=== PATIENT | female | born 1935 | race Caucasian/White ===

== ENCOUNTER 2016-10-06 14:45 | Outpatient (CLI) | payer MEDICARE, MEDICAID | END 2016-10-06 14:46 | disposition home or self-care (01) | DX: D64.9 Anemia, unspecified (principal) ==

== ENCOUNTER 2016-11-22 07:45 | Outpatient (CLI) | payer MEDICARE, MEDICAID | END 2016-11-22 07:46 | disposition home or self-care (01) | DX: I10 Essential (primary) hypertension (principal); D64.9 Anemia, unspecified; E78.5 Hyperlipidemia, unspecified ==

== ENCOUNTER 2017-10-16 08:00 | Outpatient (CLI) | payer MEDICARE, MEDICAID ==
[2017-10-16 23:03] LABS: BASOPHILS % (AUTO) 0.3 %; EOSINOPHILS % (AUTO) 0.4 %; LYMPHOCYTES % (AUTO) 16.1 %; MEAN CORPUSCULAR HEMOGLOBIN 30.4 pg (27.0-31.0); MEAN CORPUSCULAR HGB CONC 32.7 g/dL (32.0-36.0); MEAN PLATELET VOLUME 8.7 fL (7.9-10.8); MONOCYTES # (AUTO) 0.3 10^3/uL (0.0-1.0); MONOCYTES % (AUTO) 4.7 %; NEUTROPHILS # (AUTO) 4.7 10^3/uL (1.5-6.6); NEUTROPHILS % (AUTO) 78.5 %; PLT - PLATELET COUNT 222 10^3/uL (130-450); RED BLOOD COUNT 3.94 10^6/uL (4.20-5.40); RED CELL DISTRIBUTION WIDTH 14.2 % (12.0-15.0)
[2017-10-16 23:18] LABS: ALBUMIN 3.2 g/dL (3.2-5.5); ALBUMIN/GLOBULIN RATIO 1.1 (1.0-2.2); BILIRUBIN,TOTAL 0.7 mg/dL (0.2-1.0); CALCIUM 7.9 mg/dL (8.5-10.3); CREATININE 1.6 mg/dL (0.4-1.0); TOTAL PROTEIN 6.1 g/dL (6.7-8.2)
== END 2017-10-16 08:01 | disposition home or self-care (01) ==
LOC: LAB.R 08:00
DX: D50.9 Iron deficiency anemia, unspecified (principal); F20.9 Schizophrenia, unspecified; E87.6 Hypokalemia
CPT/HCPCS: 80053; 82728; 85025

== ENCOUNTER 2017-10-23 08:00 | Outpatient (CLI) | payer MEDICARE, MEDICAID ==
[2017-10-23 12:33] LABS: CALCIUM 9.1 mg/dL (8.5-10.3); CREATININE 1.2 mg/dL (0.4-1.0)
== END 2017-10-23 08:01 | disposition home or self-care (01) ==
LOC: LAB.R 08:00
PROVIDERS: ATTEND Family Medicine
DX: E87.6 Hypokalemia (principal); N18.3 Chronic kidney disease, stage 3 (moderate)
CPT/HCPCS: 80048

== ENCOUNTER 2018-07-07 05:16 | Outpatient (CLI) | payer MEDICARE, MEDICAID | END 2018-07-07 05:17 | disposition critical access hospital (66) | LOC: EMS 05:16 | PROVIDERS: ATTEND Surgery | DX: M25.571 Pain in right ankle and joints of right foot (principal); W01.0XXA Fall on same level from slipping, tripping and stumbling without subsequent striking against object, initial encounter; Y92.121 Bathroom in nursing home as the place of occurrence of the external cause | CPT/HCPCS: A0425; A0429 ==

== ENCOUNTER 2018-07-07 05:36 | Emergency (ER) | payer MEDICARE, MEDICAID ==
--- NOTE | 2018-07-07 05:53 | ED Physician Documentation ---
PD HPI Fall - Stated complaint Stated Complaint: GLF - Chief complaint Chief Complaint: Trauma Ext - History obtained from History obtained from: Patient, EMS - History of Present Illness Mechanism of injury: Slipped Fall distance: Standing position Where injury occurred: Home Timing - onset: Today Injury(ies) location: Right Lower Extremity Pain level max: 7 Pain level now: 7 Quality of pain: Pain Associated symptoms: No: LOC, AMS, Amnesia, Seizures, Ear drainage, Nasal drainage, Neck pain, Weakness, Paresthesias, Dyspnea, Nausea / vomiting, Hematemesis, Abdominal distension Worsens with: Movement, Palpation Contributing factors: No: Anticoagulated, Intoxicated Similar symptoms before: Has not had sx before Recently seen: Not recently seen - Additional information Additional information: 83-year-old female with a history of Parkinson's disease was on her way to the bathroom when she slipped in some fluid on the ground and fell onto her right side. She has a fracture dislocation deformity of the right ankle. Medics were able to palpate the right thigh and knee and were able to get some pain to deep palpation but she is able to move the joint and a good range of motion. The patient indicates that she was not otherwise ill prior to this fall. Review of Systems Constitutional: denies: Fever, Chills Eyes: denies: Decreased vision Ears: denies: Ear pain Nose: denies: Congestion Throat: denies: Dental pain / toothache Cardiac: denies: Chest pain / pressure, Palpitations Respiratory: denies: Dyspnea, Cough GI: denies: Abdominal Pain, Nausea, Vomiting : denies: Dysuria, Frequency Skin: denies: Rash Musculoskeletal: reports: Extremity pain, Joint pain, Joint swelling. denies: Neck pain, Back pain Neurologic: denies: Generalized weakness, Focal weakness, Numbness PD PAST MEDICAL HISTORY - Present Medications Home Medications: Ambulatory Orders Medication Instructions Recorded Confirmed Acetaminophen 650 mg PO TID 07/07/18 07/07/18 Hydralazine HCl 1 tab PO BID 07/07/18 07/07/18 Loperamide HCl [Anti-Diarrheal] 2 mg PO DAILY PRN 07/07/18 07/07/18 Multivitamin W/Minerals [Theragran 1 tab PO DAILY 07/07/18 07/07/18 M] OLANZapine [Zyprexa] 1 tab PO BID 07/07/18 07/07/18 Potassium Chloride 20 meq PO DAILY 07/07/18 07/07/18 Ranitidine HCl [Acid Cardiology Tech] 1 tab PO DAILY 07/07/18 07/07/18 Triple Flex 1 tab PO BID 07/07/18 - Allergies Allergies/Adverse Reactions: Allergies Allergy/AdvReac Type Severity Reaction Status Date / Time No Known Drug Allergies Allergy Verified 07/07/18 05:56 PD ED PE NORMAL - Vitals Vital signs reviewed: Yes (hypertensive ) - General General: No acute distress, Well developed/nourished - HEENT HEENT: Atraumatic, PERRL, EOMI - Neck Neck: Supple, no meningeal sign, No bony TTP - Cardiac Cardiac: RRR, No murmur - Respiratory Respiratory: No respiratory distress, Clear bilaterally - Abdomen Abdomen: Soft, Non tender - Back Back: No CVA TTP, No spinal TTP - Derm Derm: Normal color, Warm and dry, No rash - Extremities Extremities: Other (There is fracture dislocation deformity to the right ankle. There is swelling to the knee without tenderness and theres is no specific tenderness to the hip. I am able to move the hip joint through flexion extension. distal n/v is intact. ) - Neuro Neuro: dye blender 2-12 intact, No motor deficit, No sensory deficit, Normal speech Eye Opening: Spontaneous Motor: Obeys Commands Verbal: Oriented GCS Score: 15 - Psych Psych: Normal mood, Normal affect Results - Vitals Vitals: Vital Signs - 24 hr 07/07/18 07/07/18 05:39 06:32 Temperature 36.5 C Heart Rate 91 89 Respiratory 18 19 Rate Blood Pressure 173/88 H 155/97 H O2 Saturation 95 94 Oxygen O2 Source Room air - Labs Labs: Laboratory Tests 07/07/18 07/07/18 07/07/18 06:10 06:10 06:10 WBC 6.5 RBC 3.91 L Hgb 12.1 Hct 37.1 MCV 94.7 MCH 31.0 MCHC 32.7 RDW 14.4 Plt Count 238 MPV 7.6 L Neut # (Auto) 3.6 Lymph # (Auto) 2.3 Mellette # (Auto) 0.3 Eos # (Auto) 0.2 Baso # (Auto) 0.0 Absolute Nucleated RBC 0.01 Nucleated RBC % 0.1 Sodium 138 Potassium 3.3 L Chloride 105 Carbon Dioxide 25 Anion Gap 8.0 BUN 26 H Creatinine 1.4 H Estimated GFR (MDRD) 36 L Glucose 118 H Calcium 9.0 Total Bilirubin 0.7 AST 19 ALT 16 Alkaline Phosphatase 68 Troponin I < 0.04 Total Protein 7.2 Albumin 3.7 Globulin 3.5 Albumin/Globulin Ratio 1.1 Lipase 58 H Urine Color Urine Clarity Urine pH Ur Specific Nitro Urine Protein Urine Glucose (UA) Urine Ketones Urine Occult Blood Urine Nitrite Urine Bilirubin Urine Urobilinogen Ur Leukocyte Esterase Ur Microscopic Review Urine Culture Comments 07/07/18 06:10 WBC RBC Hgb Hct MCV MCH MCHC RDW Plt Count MPV Neut # (Auto) Lymph # (Auto) Mellette # (Auto) Eos # (Auto) Baso # (Auto) Absolute Nucleated RBC Nucleated RBC % Sodium Potassium Chloride Carbon Dioxide Anion Gap BUN Creatinine Estimated GFR (MDRD) Glucose Calcium Total Bilirubin AST ALT Alkaline Phosphatase Troponin I Total Protein Albumin Globulin Albumin/Globulin Ratio Lipase Urine Color YELLOW Urine Clarity CLEAR Urine pH 6.0 Ur Specific Nitro 1.020 Urine Protein NEGATIVE Urine Glucose (UA) NEGATIVE Urine Ketones NEGATIVE Urine Occult Blood NEGATIVE Urine Nitrite NEGATIVE Urine Bilirubin NEGATIVE Urine Urobilinogen 0.2 (NORMAL) Ur Leukocyte Esterase NEGATIVE Ur Microscopic Review NOT INDICATED Urine Culture Comments NOT INDICATED - Rads (name of study) right hip Radiology: Prelim report reviewed (Impression: Osteopenia . No fracture on x- ray imaging.), EMP read indepedently, See rad report right ankle Radiology: Prelim report reviewed (Impression: 1. Acute Figueroa B fracture of the distal fibula and transverse fracture of the medial malleolus. There is lateral displacement and angulation of the distal fragments. 2. Lateral subluxation of the talus relative to the tibia measuring approximately 2 cm.), EMP read indepedently, See rad report post reduction Radiology: Prelim report reviewed (Impression: Interval closed reduction of the previously seen trimalleolar ankle fracture and tibial talar subluxation. There is minimal residual offset of fracture fragments.), EMP read indepedently, See rad report Procedures - Reduction Body part reduced: Right, Ankle Fracture or dislocation: Fracture Anesthesia: Dilaudid Reduction aftercare: NV intact, Xray confirms reduction, Alignment improved, Splint applied, Patient tolerated well PD MEDICAL DECISION MAKING - ED course Complexity details: reviewed old records, reviewed results, re-evaluated patient, considered differential, d/w patient, d/w reimbursement consultant (Ruma: attempt reduction with placement of splint and follow up in clinic. ) ED course: 83-year-old female with a slip on water and a fall has a fracture of her right ankle. She has tolerated this well and reduction is achieved with the use of intravenous dilaudid and placement of a fiberglass splint posterior and stirrup. Departure - Departure Disposition: 01 Home, Self Care Clinical Impression: Ankle fracture, bimalleolar, closed Qualifiers: Encounter type: initial encounter Laterality: right Qualified Code(s): S82.841A - Displaced bimalleolar fracture of right lower leg, initial encounter for closed fracture Condition: Stable Instructions: ED Fx Lower Ext Follow-Up: Janes Priest DO [Primary Care Provider] - Cong Hendrix MD [Provider Admit Priv/Credential] - Comments: Your ankle is broken and you will need to follow up with the orthopedic doctors this week. In the mean time you will not be able to bear weight on this leg.
[2018-07-07] MEDS ORDERED: IOPAMIDOL-300 100 ML VIAL ONE (06:09)
[2018-07-07] MEDS: KETOROLAC 60 MG/2 ML VIAL IVP STA (06:12)
[2018-07-07 06:22] LABS: BILIRUBIN,URINE NEGATIVE (NEGATIVE); GLUCOSE, URINE (UA) NEGATIVE (NEGATIVE); KETONES,URINE (UA) NEGATIVE (NEGATIVE); LEUKOCYTE ESTERASE, URINE NEGATIVE (NEGATIVE); NITRITE,URINE NEGATIVE (NEGATIVE); OCCULT BLOOD,URINE NEGATIVE (NEGATIVE); PROTEIN,URINE NEGATIVE (NEGATIVE); UROBILINOGEN,URINE 0.2 (NORMAL) E.U./dL (NORMAL)
[2018-07-07 06:23] LABS: BASOPHILS % (AUTO) 0.4 %; EOSINOPHILS # (AUTO) 0.2 10^3/uL (0.0-0.7); EOSINOPHILS % (AUTO) 2.8 %; HGB - HEMOGLOBIN 12.1 g/dL (12.0-16.0); LYMPHOCYTES # (AUTO) 2.3 10^3/uL (1.5-3.5); LYMPHOCYTES % (AUTO) 35.4 %; MEAN CORPUSCULAR HGB CONC 32.7 g/dL (32.0-36.0); MEAN CORPUSCULAR VOLUME 94.7 fL (81.0-99.0); MEAN PLATELET VOLUME 7.6 fL (7.9-10.8); MONOCYTES # (AUTO) 0.3 10^3/uL (0.0-1.0); MONOCYTES % (AUTO) 5.3 %; NEUTROPHILS # (AUTO) 3.6 10^3/uL (1.5-6.6); NEUTROPHILS % (AUTO) 56.1 %; PLT - PLATELET COUNT 238 10^3/uL (130-450); RED BLOOD COUNT 3.91 10^6/uL (4.20-5.40); RED CELL DISTRIBUTION WIDTH 14.4 % (12.0-15.0); WHITE BLOOD COUNT 6.5 x10^3/uL (4.8-10.8)
[2018-07-07 06:42] LABS: ALBUMIN 3.7 g/dL (3.2-5.5); ALBUMIN/GLOBULIN RATIO 1.1 (1.0-2.2); BILIRUBIN,TOTAL 0.7 mg/dL (0.2-1.0); CREATININE 1.4 mg/dL (0.4-1.0); TOTAL PROTEIN 7.2 g/dL (6.7-8.2)
[2018-07-07 06:44] LABS: CLARITY,URINE CLEAR (CLEAR)
[2018-07-07] MEDS: ONDANSETRON 4 MG/2 ML VIAL IVP STA (07:36)
[2018-07-07] MEDS: HYDROmorphone 1 MG/ML CARPUJECT IVP STA (07:36)
--- NOTE | 2018-07-07 07:46 | XRAY Report ---
Reason: fall fracture dislocation deformity. Procedure Date: 07/07/2018 Accession Number: [id number] / [id number] Procedure: XR - Ankle 3 View RT CPT Code: FULL RESULT: EXAM: RIGHT ANKLE RADIOGRAPHY EXAM DATE: 07/07/2018 07:09 AM. CLINICAL HISTORY: Fall. Fracture dislocation deformity. COMPARISON: None. TECHNIQUE: 4 views. FINDINGS: Bones: Diffusely demineralized. There is an acute transverse fracture of the medial malleolus with lateral displacement of the distal fragment measuring approximately 1.7 cm. There is an acute oblique fracture of the distal fibula at the level of the tibial plafond (Figueroa B fracture). Lateral displacement of the distal fragment measures approximately 1.5 cm. There is lateral angulation of the distal fibular fragment. Joints: The ankle mortise is disrupted. There is lateral subluxation of the talus relative to the tibia measuring approximately 2 cm. Soft Tissues: There is diffuse soft tissue swelling around the ankle. Moderate vascular calcifications are present. IMPRESSION: 1. Acute Figueroa B fracture of the distal fibula and transverse fracture of the medial malleolus. There is lateral displacement and angulation of the distal fragments. 2. Lateral subluxation of the talus relative to the tibia measuring approximately 2 cm. RADIA
--- NOTE | 2018-07-07 07:48 | XRAY Report ---
Reason: fall hip pain. Procedure Date: 07/07/2018 Accession Number: [id number] / [id number] Procedure: XR - Hip w/Pelvis 2-3V RT CPT Code: FULL RESULT: EXAM: PELVIS AND RIGHT HIP RADIOGRAPHY EXAM DATE: 07/07/2018 07:09 AM HISTORY: Fall. Hip pain. COMPARISONS: None. TECHNIQUE: 1 view of the pelvis and one view of the right hip. FINDINGS: Bones: Osteopenia is present. No fractures or bone lesion. Joints: There are mild degenerative changes of the bilateral hip joints. Soft Tissues: Normal. No soft tissue swelling. IMPRESSION: Osteopenia. No fracture on x-ray imaging. Note: Osteopenia can limit detection of trabecular fracture. If the patient cannot ambulate, recommend MRI hip to exclude occult fracture. RADIA
--- NOTE | 2018-07-07 08:24 | XRAY Report ---
Reason: post reduction Procedure Date: 07/07/2018 Accession Number: [id number] / [id number] Procedure: XR - Ankle 2 View RT CPT Code: FULL RESULT: EXAM: RIGHT ANKLE RADIOGRAPHY EXAM DATE: 07/07/2018 08:06 AM. CLINICAL HISTORY: Post reduction. COMPARISON: ANKLE 3 VIEW RT 07/07/2018 6:43 AM. TECHNIQUE: 2 views. FINDINGS: Bones: A splint is present, which partly obscures underlying detail. Bones are diffusely demineralized. As noted on the prior exam, there is an acute transverse fracture of the medial malleolus and acute oblique fracture of the distal fibula at the level of the tibial plafond. There is also an acute posterior malleolar fracture of the distal tibia. Alignment is improved compared to the prior exam, with minimal residual offset. Joints: There has been interval reduction of the previously seen tibiotalar subluxation. Ankle mortise alignment is now near-anatomic. Soft Tissues: There is diffuse soft tissue swelling around the ankle. IMPRESSION: Interval closed reduction of the previously seen trimalleolar ankle fracture and tibiotalar subluxation. There is minimal residual offset of fracture fragments. RADIA
[2018-07-07 08:45] VITALS: BP 108/72
== END 2018-07-07 09:19 | disposition home or self-care (01) ==
LOC: EDUNIT# → ED 05:36
DX: S82.841A Displaced bimalleolar fracture of right lower leg, initial encounter for closed fracture (principal); S93.01XA Subluxation of right ankle joint, initial encounter; W01.0XXA Fall on same level from slipping, tripping and stumbling without subsequent striking against object, initial encounter; Y92.002 Bathroom of unspecified non-institutional (private) residence as the place of occurrence of the external cause; G20 Parkinson's disease
CPT/HCPCS: 27810; 36415; 73502; 73600; 73610; 80053; 81003; 83690; 84484; 85025; 96374; 96375; 99283; 99284; J1170; 81001; 87086

== ENCOUNTER 2018-10-23 08:00 | Outpatient (CLI) | payer MEDICARE, MEDICAID ==
[2018-10-23 16:03] LABS: BASOPHILS # (AUTO) 0.1 10^3/uL (0.0-0.1); BASOPHILS % (AUTO) 0.7 %; EOSINOPHILS # (AUTO) 0.2 10^3/uL (0.0-0.7); EOSINOPHILS % (AUTO) 2.3 %; HGB - HEMOGLOBIN 12.1 g/dL (12.0-16.0); LYMPHOCYTES % (AUTO) 27.5 %; MEAN CORPUSCULAR HEMOGLOBIN 30.5 pg (27.0-31.0); MEAN CORPUSCULAR HGB CONC 32.1 g/dL (32.0-36.0); MONOCYTES # (AUTO) 0.5 10^3/uL (0.0-1.0); MONOCYTES % (AUTO) 6.3 %; NEUTROPHILS # (AUTO) 4.7 10^3/uL (1.5-6.6); NEUTROPHILS % (AUTO) 63.2 %; PLT - PLATELET COUNT 283 10^3/uL (130-450); RED BLOOD COUNT 3.96 10^6/uL (4.20-5.40); RED CELL DISTRIBUTION WIDTH 14.7 % (12.0-15.0); WHITE BLOOD COUNT 7.4 x10^3/uL (4.8-10.8)
[2018-10-23 16:13] LABS: CALCIUM 9.2 mg/dL (8.5-10.3); CREATININE 1.1 mg/dL (0.4-1.0)
== END 2018-10-23 23:59 | disposition home or self-care (01) ==
LOC: LAB.R 08:00
PROVIDERS: ATTEND Family Medicine
DX: E78.6 Lipoprotein deficiency (principal); D64.9 Anemia, unspecified
CPT/HCPCS: 80048; 85025

== ENCOUNTER 2019-06-24 10:05 | Outpatient (CLI) | payer MEDICARE, MEDICAID | END 2019-06-24 23:59 | disposition home or self-care (01) | LOC: LAB.R 10:05 | DX: N39.0 Urinary tract infection, site not specified (principal) | CPT/HCPCS: 81001; 81003; 87086 ==

== ENCOUNTER 2019-06-25 18:16 | Outpatient (CLI) | payer MEDICARE, MEDICAID ==
[2019-06-25 23:12] LABS: BILIRUBIN,URINE NEGATIVE (NEGATIVE); GLUCOSE, URINE (UA) NEGATIVE (NEGATIVE); KETONES,URINE (UA) NEGATIVE (NEGATIVE); LEUKOCYTE ESTERASE, URINE NEGATIVE (NEGATIVE); NITRITE,URINE NEGATIVE (NEGATIVE); OCCULT BLOOD,URINE NEGATIVE (NEGATIVE); PROTEIN,URINE NEGATIVE (NEGATIVE); UROBILINOGEN,URINE 0.2 (NORMAL) E.U./dL (NORMAL)
[2019-06-25 23:15] LABS: CLARITY,URINE CLEAR (CLEAR)
== END 2019-06-25 23:59 | disposition home or self-care (01) ==
LOC: LAB.R 18:16
DX: N39.0 Urinary tract infection, site not specified (principal)
CPT/HCPCS: 81001; 81003; 87086

== ENCOUNTER 2019-07-15 19:00 | Outpatient (CLI) | payer MEDICARE, MEDICAID ==
[2019-07-15 23:16] LABS: BILIRUBIN,URINE NEGATIVE (NEGATIVE); GLUCOSE, URINE (UA) NEGATIVE (NEGATIVE); KETONES,URINE (UA) NEGATIVE (NEGATIVE); LEUKOCYTE ESTERASE, URINE NEGATIVE (NEGATIVE); NITRITE,URINE NEGATIVE (NEGATIVE); OCCULT BLOOD,URINE NEGATIVE (NEGATIVE); PROTEIN,URINE NEGATIVE (NEGATIVE); UROBILINOGEN,URINE 0.2 (NORMAL) E.U./dL (NORMAL)
[2019-07-15 23:18] LABS: CLARITY,URINE CLEAR (CLEAR)
== END 2019-07-15 23:59 | disposition home or self-care (01) ==
LOC: LAB.R 19:00
DX: N39.0 Urinary tract infection, site not specified (principal)
CPT/HCPCS: 81001; 81003; 87086

== ENCOUNTER 2019-10-15 08:00 | Outpatient (CLI) | payer MEDICARE, MEDICAID ==
[2019-10-15 17:11] LABS: ALBUMIN 4.1 g/dL (3.2-5.5); ALBUMIN/GLOBULIN RATIO 1.2 (1.0-2.2); BILIRUBIN,DIRECT 0.1 mg/dL (0.1-0.5); BILIRUBIN,TOTAL 0.5 mg/dL (0.2-1.0); CALCIUM 9.6 mg/dL (8.5-10.3); CREATININE 1.4 mg/dL (0.4-1.0); TOTAL PROTEIN 7.5 g/dL (6.7-8.2)
[2019-10-15 17:13] LABS: HB2 TOTAL 13.5 g/dL; HEMOGLOBIN A1C 0.46 g/dL; HEMOGLOBIN A1C % 5.3 % (4.6-6.2)
== END 2019-10-15 23:59 | disposition home or self-care (01) ==
LOC: LAB.R 08:00
DX: N28.9 Disorder of kidney and ureter, unspecified (principal); R73.09 Other abnormal glucose
CPT/HCPCS: 80053; 80076; 83036

== ENCOUNTER 2019-10-16 08:00 | Outpatient (CLI) | payer MEDICARE, MEDICAID ==
[2019-10-16 07:28] LABS: ALBUMIN 3.7 g/dL (3.2-5.5); BILIRUBIN,DIRECT 0.1 mg/dL (0.1-0.5); BILIRUBIN,TOTAL 0.5 mg/dL (0.2-1.0); CREATININE 1.2 mg/dL (0.4-1.0); TOTAL PROTEIN 6.7 g/dL (6.7-8.2)
[2019-10-16 07:54] LABS: HB2 TOTAL 12.5 g/dL; HEMOGLOBIN A1C 0.42 g/dL; HEMOGLOBIN A1C % 5.2 % (4.6-6.2)
== END 2019-10-16 23:59 | disposition home or self-care (01) ==
LOC: LAB.R 08:00
DX: D64.9 Anemia, unspecified (principal); G24.01 Drug induced subacute dyskinesia
CPT/HCPCS: 80051; 80076; 82565; 83036

== ENCOUNTER 2019-12-13 08:00 | Outpatient (CLI) | payer MEDICARE, MEDICAID ==
[2019-12-13 16:03] LABS: BASOPHILS % (AUTO) 0.7 %; EOSINOPHILS # (AUTO) 0.1 10^3/uL (0.0-0.7); EOSINOPHILS % (AUTO) 1.6 %; HGB - HEMOGLOBIN 12.4 g/dL (12.0-16.0); LYMPHOCYTES # (AUTO) 1.7 10^3/uL (1.5-3.5); LYMPHOCYTES % (AUTO) 30.2 %; MEAN CORPUSCULAR HEMOGLOBIN 31.3 pg (27.0-31.0); MEAN CORPUSCULAR HGB CONC 31.4 g/dL (32.0-36.0); MEAN CORPUSCULAR VOLUME 99.7 fL (81.0-99.0); MEAN PLATELET VOLUME 10.1 fL (7.9-10.8); MONOCYTES # (AUTO) 0.5 10^3/uL (0.0-1.0); MONOCYTES % (AUTO) 9.4 %; NEUTROPHILS # (AUTO) 3.3 10^3/uL (1.5-6.6); NEUTROPHILS % (AUTO) 57.8 %; PLT - PLATELET COUNT 246 10^3/uL (130-450); RED BLOOD COUNT 3.96 10^6/uL (4.20-5.40); WHITE BLOOD COUNT 5.7 x10^3/uL (4.8-10.8)
[2019-12-13 16:10] LABS: CALCIUM 9.2 mg/dL (8.5-10.3); CREATININE 1.2 mg/dL (0.4-1.0)
== END 2019-12-13 23:59 | disposition home or self-care (01) ==
LOC: LAB.R 08:00
PROVIDERS: ATTEND Family Medicine
DX: U07.1 COVID-19 (principal); I10 Essential (primary) hypertension
CPT/HCPCS: 80048; 85025

== ENCOUNTER → 2020-07-12 | Outpatient (CLI) | payer MEDICARE, MEDICAID ==
[2020-07-12 15:26] LABS: BASOPHILS % (AUTO) 0.6 %; EOSINOPHILS # (AUTO) 0.2 10^3/uL (0.0-0.7); EOSINOPHILS % (AUTO) 3.6 %; HGB - HEMOGLOBIN 12.3 g/dL (12.0-16.0); LYMPHOCYTES # (AUTO) 1.9 10^3/uL (1.5-3.5); LYMPHOCYTES % (AUTO) 29.7 %; MEAN CORPUSCULAR HEMOGLOBIN 30.8 pg (27.0-31.0); MEAN CORPUSCULAR HGB CONC 30.8 g/dL (32.0-36.0); MONOCYTES # (AUTO) 0.4 10^3/uL (0.0-1.0); MONOCYTES % (AUTO) 6.2 %; NEUTROPHILS # (AUTO) 3.8 10^3/uL (1.5-6.6); NEUTROPHILS % (AUTO) 59.6 %; PLT - PLATELET COUNT 249 10^3/uL (130-450); RED CELL DISTRIBUTION WIDTH 13.6 % (12.0-15.0); WHITE BLOOD COUNT 6.3 x10^3/uL (4.8-10.8)
[2020-07-12 15:48] LABS: ALBUMIN 3.6 g/dL (3.2-5.5); ALBUMIN/GLOBULIN RATIO 1.2 (1.0-2.2); ALKALINE PHOSPHATASE 56 IU/L (42-121); ALT ALANINE AMINOTRANSFERASE 10 IU/L (10-60); AST ASPARTATE AMINOTRANSFERASE 12 IU/L (10-42); BILIRUBIN,TOTAL 0.6 mg/dL (0.2-1.0); BUN - BLOOD UREA NITROGEN 22 mg/dL (6-20); CALCIUM 9.5 mg/dL (8.5-10.3); CARBON DIOXIDE - CO2 23 mmol/L (21-32); CHLORIDE 107 mmol/L (101-111); CHOL/HDL RATIO 6.8 (<4.4); CHOLESTEROL 291 mg/dL; CREATININE 1.2 mg/dL (0.4-1.0); GLUCOSE 80 mg/dL (70-100); HDL CHOLESTEROL 43 mg/dL; LDL CHOLESTEROL,CALCULATED 207 mg/dL; LDL/HDL RATIO 4.8 (<4.4); SODIUM 143 mmol/L (135-145); TOTAL PROTEIN 6.6 g/dL (6.7-8.2); VLDL CHOLESTEROL 41 mg/dL
[2020-07-12 20:14] LABS: HEMOGLOBIN A1c% 5.4 % (4.27-6.07)
== END ==
LOC: LAB.R 08:00
PROVIDERS: ATTEND Family Medicine
DX: I10 Essential (primary) hypertension (principal); E78.5 Hyperlipidemia, unspecified; D64.9 Anemia, unspecified; R73.01 Impaired fasting glucose; N28.9 Disorder of kidney and ureter, unspecified; R63.4 Abnormal weight loss; G20 Parkinson's disease; Z78.9 Other specified health status; T88.7XXS Unspecified adverse effect of drug or medicament, sequela
CPT/HCPCS: 80053; 80061; 83036; 83721; 84146; 85025

== ENCOUNTER 2020-09-13 08:00 | Outpatient (CLI) | payer MEDICARE, MEDICAID ==
[2020-09-13 08:27] LABS: BASOPHILS % (AUTO) 0.4 %; EOSINOPHILS # (AUTO) 0.2 10^3/uL (0.0-0.7); EOSINOPHILS % (AUTO) 4.3 %; HGB - HEMOGLOBIN 12.1 g/dL (12.0-16.0); LYMPHOCYTES # (AUTO) 1.4 10^3/uL (1.5-3.5); LYMPHOCYTES % (AUTO) 25.3 %; MEAN CORPUSCULAR HEMOGLOBIN 31.3 pg (27.0-31.0); MEAN CORPUSCULAR HGB CONC 31.3 g/dL (32.0-36.0); MEAN CORPUSCULAR VOLUME 100.3 fL (81.0-99.0); MEAN PLATELET VOLUME 9.7 fL (7.9-10.8); MONOCYTES # (AUTO) 0.5 10^3/uL (0.0-1.0); MONOCYTES % (AUTO) 8.9 %; NEUTROPHILS # (AUTO) 3.4 10^3/uL (1.5-6.6); NEUTROPHILS % (AUTO) 60.7 %; PLT - PLATELET COUNT 230 10^3/uL (130-450); RED BLOOD COUNT 3.86 10^6/uL (4.20-5.40); RED CELL DISTRIBUTION WIDTH 13.2 % (12.0-15.0); WHITE BLOOD COUNT 5.5 x10^3/uL (4.8-10.8)
[2020-09-13 08:42] LABS: CHOL/HDL RATIO 4.1 (<4.4); CHOLESTEROL 203 mg/dL; HDL CHOLESTEROL 49 mg/dL; LDL CHOLESTEROL,CALCULATED 117 mg/dL; LDL/HDL RATIO 2.4 (<4.4); VLDL CHOLESTEROL 37 mg/dL
== END 2020-09-13 23:59 | disposition home or self-care (01) ==
LOC: LAB.R 08:00
PROVIDERS: ATTEND Family Medicine
DX: E78.5 Hyperlipidemia, unspecified (principal); D64.9 Anemia, unspecified
CPT/HCPCS: 80061; 83721; 85025

== ENCOUNTER 2020-09-15 11:30 | Outpatient (CLI) | payer MEDICARE, MEDICAID ==
[2020-09-15 12:14] LABS: CALCIUM 9.2 mg/dL (8.5-10.3); CREATININE 1.3 mg/dL (0.4-1.0)
== END 2020-09-15 23:59 | disposition home or self-care (01) ==
LOC: LAB.R 11:30
DX: D64.9 Anemia, unspecified (principal); E78.5 Hyperlipidemia, unspecified; N28.9 Disorder of kidney and ureter, unspecified; M17.12 Unilateral primary osteoarthritis, left knee
CPT/HCPCS: 36415; 80048; 85651

== ENCOUNTER 2020-09-16 13:35 | Outpatient (CLI) | payer MEDICARE, MEDICAID ==
--- NOTE | 2020-09-16 16:49 | XRAY Report ---
PROCEDURE: Knee 2 View RT INDICATIONS: Rt Knee pain and swelling TECHNIQUE: 2 views of the right knee(s) were acquired. COMPARISON: Right knee radiographs 02/02/2015 FINDINGS: Bones: No acute fractures or dislocations. No suspicious bony lesions. There is generalized osteope ann. There is moderate narrowing of the lateral femorotibial compartment joint space appears more pro minent on lateral view. There is mild narrowing of the medial compartment joint space. Soft tissues: Chondrocalcinosis is noted. There is a small joint effusion. IMPRESSION: 1. Degenerative osteoarthrosis is at least moderate in the lateral femorotibial compartment, mildly progressed when compared to the prior radiographs from 02/02/2015. 2. Chondrocalcinosis. 3. Small joint effusion. Reviewed by: Johnathon Moreno MD on 09/16/2020 4:47 PM PST Approved by: Johnathon Moreno MD on 09/16/2020 4:47 PM PST Station ID: [id number]
== END 2020-09-16 13:36 | disposition home or self-care (01) ==
LOC: DI 13:35
PROVIDERS: ATTEND Nurse Practitioner
DX: M17.11 Unilateral primary osteoarthritis, right knee (principal); M11.261 Other chondrocalcinosis, right knee

== ENCOUNTER 2021-01-10 08:00 | Outpatient (CLI) | payer MEDICARE, MEDICAID ==
[2021-01-10 19:57] LABS: BASOPHILS % (AUTO) 0.8 %; EOSINOPHILS # (AUTO) 0.1 10^3/uL (0.0-0.7); EOSINOPHILS % (AUTO) 2.5 %; HCT - HEMATOCRIT 43.2 % (37.0-47.0); HGB - HEMOGLOBIN 14.4 g/dL (12.0-16.0); LYMPHOCYTES # (AUTO) 1.7 10^3/uL (1.5-3.5); LYMPHOCYTES % (AUTO) 32.4 %; MEAN CORPUSCULAR HGB CONC 33.3 g/dL (32.0-36.0); MEAN CORPUSCULAR VOLUME 101.9 fL (81.0-99.0); MEAN PLATELET VOLUME 10.5 fL (7.9-10.8); MONOCYTES # (AUTO) 0.4 10^3/uL (0.0-1.0); MONOCYTES % (AUTO) 7.2 %; NEUTROPHILS % (AUTO) 56.7 %; PLT - PLATELET COUNT 268 10^3/uL (130-450); RED BLOOD COUNT 4.24 10^6/uL (4.20-5.40); RED CELL DISTRIBUTION WIDTH 13.2 % (12.0-15.0); WHITE BLOOD COUNT 5.3 x10^3/uL (4.8-10.8)
[2021-01-10 20:19] LABS: ALBUMIN 4.3 g/dL (3.2-5.5); ALBUMIN/GLOBULIN RATIO 1.2 (1.0-2.2); ALKALINE PHOSPHATASE 62 IU/L (42-121); ALT ALANINE AMINOTRANSFERASE 14 IU/L (10-60); AST ASPARTATE AMINOTRANSFERASE 16 IU/L (10-42); BILIRUBIN,TOTAL 0.6 mg/dL (0.2-1.0); BUN - BLOOD UREA NITROGEN 30 mg/dL (6-20); CALCIUM 9.6 mg/dL (8.5-10.3); CARBON DIOXIDE - CO2 25 mmol/L (21-32); CHLORIDE 107 mmol/L (101-111); CHOL/HDL RATIO 4.2 (<4.4); CHOLESTEROL 208 mg/dL; CREATININE 1.3 mg/dL (0.4-1.0); GFR - MDRD 39 (>89); GLUCOSE 108 mg/dL (70-100); HDL CHOLESTEROL 50 mg/dL; LDL CHOLESTEROL,CALCULATED 103 mg/dL; LDL/HDL RATIO 2.1 (<4.4); POTASSIUM 4.1 mmol/L (3.5-5.0); SODIUM 141 mmol/L (135-145); TOTAL PROTEIN 7.8 g/dL (6.7-8.2); TRIGLYCERIDES 273 mg/dL; VLDL CHOLESTEROL 55 mg/dL
== END 2021-01-10 23:59 | disposition home or self-care (01) ==
LOC: LAB.R 08:00
DX: I12.9 Hypertensive chronic kidney disease with stage 1 through stage 4 chronic kidney disease, or unspecified chronic kidney disease (principal); N18.30 Chronic kidney disease, stage 3 unspecified; N28.9 Disorder of kidney and ureter, unspecified; E78.5 Hyperlipidemia, unspecified; D64.9 Anemia, unspecified; D75.89 Other specified diseases of blood and blood-forming organs; F34.0 Cyclothymic disorder
CPT/HCPCS: 80053; 80061; 83721; 84146; 85025

== ENCOUNTER 2021-02-11 08:00 | Outpatient (CLI) | payer MEDICARE, MEDICAID ==
[2021-02-11 11:57] LABS: BASOPHILS % (AUTO) 0.4 %; EOSINOPHILS # (AUTO) 0.4 10^3/uL (0.0-0.7); EOSINOPHILS % (AUTO) 7.1 %; HCT - HEMATOCRIT 39.7 % (37.0-47.0); HGB - HEMOGLOBIN 12.5 g/dL (12.0-16.0); LYMPHOCYTES # (AUTO) 1.6 10^3/uL (1.5-3.5); LYMPHOCYTES % (AUTO) 30.9 %; MEAN CORPUSCULAR HEMOGLOBIN 32.1 pg (27.0-31.0); MEAN CORPUSCULAR HGB CONC 31.5 g/dL (32.0-36.0); MEAN CORPUSCULAR VOLUME 101.8 fL (81.0-99.0); MEAN PLATELET VOLUME 10.2 fL (7.9-10.8); MONOCYTES # (AUTO) 0.3 10^3/uL (0.0-1.0); MONOCYTES % (AUTO) 6.5 %; NEUTROPHILS # (AUTO) 2.8 10^3/uL (1.5-6.6); NEUTROPHILS % (AUTO) 54.9 %; PLT - PLATELET COUNT 200 10^3/uL (130-450); RED CELL DISTRIBUTION WIDTH 12.9 % (12.0-15.0); WHITE BLOOD COUNT 5.1 x10^3/uL (4.8-10.8)
[2021-02-11 12:17] LABS: ALBUMIN 3.7 g/dL (3.2-5.5); ALBUMIN/GLOBULIN RATIO 1.3 (1.0-2.2); ALKALINE PHOSPHATASE 46 IU/L (42-121); ALT ALANINE AMINOTRANSFERASE 12 IU/L (10-60); AST ASPARTATE AMINOTRANSFERASE 15 IU/L (10-42); BILIRUBIN,TOTAL 0.6 mg/dL (0.2-1.0); BUN - BLOOD UREA NITROGEN 24 mg/dL (6-20); CALCIUM 9.2 mg/dL (8.5-10.3); CARBON DIOXIDE - CO2 25 mmol/L (21-32); CHLORIDE 107 mmol/L (101-111); CHOL/HDL RATIO 3.3 (<4.4); CHOLESTEROL 149 mg/dL; CREATININE 1.2 mg/dL (0.4-1.0); GFR - MDRD 42 (>89); GLUCOSE 86 mg/dL (70-100); HDL CHOLESTEROL 45 mg/dL; LDL CHOLESTEROL,CALCULATED 77 mg/dL; LDL/HDL RATIO 1.7 (<4.4); POTASSIUM 3.8 mmol/L (3.5-5.0); SODIUM 140 mmol/L (135-145); TOTAL PROTEIN 6.6 g/dL (6.7-8.2); TRIGLYCERIDES 136 mg/dL; VLDL CHOLESTEROL 27 mg/dL
[2021-02-11 13:37] LABS: ESTIMATED AVERAGE GLUCOSE 108 mg/dL (70-100); HEMOGLOBIN A1c% 5.4 % (4.27-6.07)
== END 2021-02-11 23:59 | disposition home or self-care (01) ==
LOC: LAB.R 08:00
DX: N28.9 Disorder of kidney and ureter, unspecified (principal); E78.5 Hyperlipidemia, unspecified; D64.9 Anemia, unspecified; D37.01 Neoplasm of uncertain behavior of lip; R63.4 Abnormal weight loss; R73.09 Other abnormal glucose
CPT/HCPCS: 80053; 80061; 83036; 83721; 84146; 85025

== ENCOUNTER 2021-08-13 08:00 | Outpatient (CLI) | payer MEDICARE, MEDICAID ==
[2021-08-13 19:31] LABS: BASOPHILS % (AUTO) 0.6 %; EOSINOPHILS # (AUTO) 0.2 10^3/uL (0.0-0.7); EOSINOPHILS % (AUTO) 2.5 %; HCT - HEMATOCRIT 40.5 % (37.0-47.0); HGB - HEMOGLOBIN 12.8 g/dL (12.0-16.0); LYMPHOCYTES # (AUTO) 2.1 10^3/uL (1.5-3.5); LYMPHOCYTES % (AUTO) 29.5 %; MEAN CORPUSCULAR HEMOGLOBIN 32.2 pg (27.0-31.0); MEAN CORPUSCULAR HGB CONC 31.6 g/dL (32.0-36.0); MEAN CORPUSCULAR VOLUME 101.8 fL (81.0-99.0); MEAN PLATELET VOLUME 10.8 fL (7.9-10.8); MONOCYTES # (AUTO) 0.6 10^3/uL (0.0-1.0); MONOCYTES % (AUTO) 7.9 %; NEUTROPHILS # (AUTO) 4.3 10^3/uL (1.5-6.6); NEUTROPHILS % (AUTO) 59.2 %; PLT - PLATELET COUNT 230 10^3/uL (130-450); RED BLOOD COUNT 3.98 10^6/uL (4.20-5.40); RED CELL DISTRIBUTION WIDTH 12.9 % (12.0-15.0); WHITE BLOOD COUNT 7.2 x10^3/uL (4.8-10.8)
[2021-08-13 19:41] LABS: BUN - BLOOD UREA NITROGEN 36 mg/dL (6-20); CALCIUM 9.1 mg/dL (8.5-10.3); CARBON DIOXIDE - CO2 24 mmol/L (21-32); CHLORIDE 104 mmol/L (101-111); CHOL/HDL RATIO 3.2 (<4.4); CHOLESTEROL 185 mg/dL; CREATININE 1.3 mg/dL (0.4-1.0); GFR - MDRD 39 (>89); GLUCOSE 113 mg/dL (70-100); HDL CHOLESTEROL 58 mg/dL; LDL CHOLESTEROL,CALCULATED 79 mg/dL; LDL/HDL RATIO 1.4 (<4.4); POTASSIUM 4.3 mmol/L (3.5-5.0); SODIUM 139 mmol/L (135-145); TRIGLYCERIDES 240 mg/dL; VLDL CHOLESTEROL 48 mg/dL
[2021-08-13 20:21] LABS: ESTIMATED AVERAGE GLUCOSE 111 mg/dL (70-100); HEMOGLOBIN A1c% 5.5 % (4.27-6.07)
== END 2021-08-13 23:59 ==
LOC: LAB 08:00
DX: I12.9 Hypertensive chronic kidney disease with stage 1 through stage 4 chronic kidney disease, or unspecified chronic kidney disease (principal); N18.30 Chronic kidney disease, stage 3 unspecified; F30.4 Manic episode in full remission; E78.5 Hyperlipidemia, unspecified; E08.9 Diabetes mellitus due to underlying condition without complications; D64.9 Anemia, unspecified
CPT/HCPCS: 36415; 80048; 80061; 83036; 83721; 84146; 85025

== ENCOUNTER 2021-09-14 08:00 | Outpatient (CLI) | payer MEDICARE, MEDICAID ==
[2021-09-14 19:47] LABS: BILIRUBIN,URINE NEGATIVE (NEGATIVE); GLUCOSE, URINE (UA) NEGATIVE (NEGATIVE); KETONES,URINE (UA) 15 mg/dL (NEGATIVE); LEUKOCYTE ESTERASE, URINE NEGATIVE (NEGATIVE); NITRITE,URINE NEGATIVE (NEGATIVE); OCCULT BLOOD,URINE NEGATIVE (NEGATIVE); PROTEIN,URINE NEGATIVE (NEGATIVE); UROBILINOGEN,URINE 0.2 (NORMAL) E.U./dL (NORMAL)
[2021-09-14 19:50] LABS: CLARITY,URINE CLEAR (CLEAR)
== END 2021-09-14 23:59 ==
LOC: LAB 08:00
DX: N39.0 Urinary tract infection, site not specified (principal)
CPT/HCPCS: 81001; 81003; 87086

== ENCOUNTER 2021-09-15 10:18 | Outpatient (CLI) | payer MEDICARE, MEDICAID ==
[2021-09-15 10:29] LABS: BASOPHILS % (AUTO) 0.3 %; EOSINOPHILS # (AUTO) 0.1 10^3/uL (0.0-0.7); EOSINOPHILS % (AUTO) 1.2 %; HCT - HEMATOCRIT 39.5 % (37.0-47.0); HGB - HEMOGLOBIN 12.4 g/dL (12.0-16.0); LYMPHOCYTES # (AUTO) 1.3 10^3/uL (1.5-3.5); LYMPHOCYTES % (AUTO) 13.7 %; MEAN CORPUSCULAR HEMOGLOBIN 31.2 pg (27.0-31.0); MEAN CORPUSCULAR HGB CONC 31.4 g/dL (32.0-36.0); MEAN CORPUSCULAR VOLUME 99.5 fL (81.0-99.0); MEAN PLATELET VOLUME 10.6 fL (7.9-10.8); MONOCYTES # (AUTO) 0.6 10^3/uL (0.0-1.0); MONOCYTES % (AUTO) 6.4 %; NEUTROPHILS # (AUTO) 7.3 10^3/uL (1.5-6.6); NEUTROPHILS % (AUTO) 78.2 %; PLT - PLATELET COUNT 220 10^3/uL (130-450); RED BLOOD COUNT 3.97 10^6/uL (4.20-5.40); RED CELL DISTRIBUTION WIDTH 13.2 % (12.0-15.0); WHITE BLOOD COUNT 9.3 x10^3/uL (4.8-10.8)
[2021-09-15 10:41] LABS: ALBUMIN 3.7 g/dL (3.2-5.5); BILIRUBIN,TOTAL 0.9 mg/dL (0.2-1.0); CALCIUM 9.2 mg/dL (8.5-10.3); CREATININE 1.1 mg/dL (0.4-1.0); POTASSIUM 3.5 mmol/L (3.5-5.0); TOTAL PROTEIN 7.3 g/dL (6.7-8.2)
== END 2021-09-15 10:19 | disposition home or self-care (01) ==
LOC: LAB.R 10:18
DX: E78.5 Hyperlipidemia, unspecified (principal); D64.9 Anemia, unspecified; D75.89 Other specified diseases of blood and blood-forming organs
CPT/HCPCS: 80053; 85025

== ENCOUNTER 2021-09-20 15:25 | Outpatient (CLI) | payer MEDICARE, MEDICAID ==
--- NOTE | 2021-09-20 16:15 | XRAY Report ---
PROCEDURE: Chest 2 View X-Ray INDICATIONS: COUGH TECHNIQUE: 2 view(s) of the chest. COMPARISON: Prior comparison studies not available for review. FINDINGS: Surgical changes and devices: None. Lungs and pleura: No substantial pleural effusions. No pneumothorax. Chronic appearing diffuse inter stitial prominence with hyperaeration and flattening of the hemidiaphragms. No focal airspace disease . Mediastinum: Mediastinal contours are normal. Heart size is normal. Atherosclerotic calcifications are noted in the thoracic aorta. Bones and chest wall: No suspicious bony abnormalities. Soft tissues appear unremarkable. Diffuse o steopenia. No acute compression fracture seen. IMPRESSION: Findings compatible with sequela of chronic obstructive pulmonary physiology. No focal a irspace disease. No acute cardiopulmonary abnormalities. Reviewed by: Dario Nichols MD on 09/20/2021 4:13 PM PST Approved by: Dario Nichols MD on 09/20/2021 4:13 PM PST Station ID: [id number]
== END 2021-09-20 15:26 | disposition home or self-care (01) ==
LOC: DI 15:25
PROVIDERS: ATTEND Hospitalist
DX: R05.9 Cough, unspecified (principal); R09.89 Other specified symptoms and signs involving the circulatory and respiratory systems

== ENCOUNTER 2021-09-29 08:00 | Outpatient (CLI) | payer MEDICARE, MEDICAID ==
[2021-09-29 17:19] LABS: BASOPHILS % (AUTO) 0.4 %; EOSINOPHILS # (AUTO) 0.2 10^3/uL (0.0-0.7); EOSINOPHILS % (AUTO) 2.3 %; HCT - HEMATOCRIT 37.2 % (37.0-47.0); HGB - HEMOGLOBIN 11.8 g/dL (12.0-16.0); LYMPHOCYTES # (AUTO) 1.9 10^3/uL (1.5-3.5); LYMPHOCYTES % (AUTO) 25.8 %; MEAN CORPUSCULAR HEMOGLOBIN 31.9 pg (27.0-31.0); MEAN CORPUSCULAR HGB CONC 31.7 g/dL (32.0-36.0); MEAN CORPUSCULAR VOLUME 100.5 fL (81.0-99.0); MEAN PLATELET VOLUME 10.3 fL (7.9-10.8); MONOCYTES # (AUTO) 0.5 10^3/uL (0.0-1.0); MONOCYTES % (AUTO) 6.9 %; NEUTROPHILS # (AUTO) 4.7 10^3/uL (1.5-6.6); NEUTROPHILS % (AUTO) 64.5 %; PLT - PLATELET COUNT 288 10^3/uL (130-450); RED CELL DISTRIBUTION WIDTH 13.2 % (12.0-15.0); WHITE BLOOD COUNT 7.2 x10^3/uL (4.8-10.8)
[2021-09-29 17:54] LABS: CREATININE 1.2 mg/dL (0.4-1.0)
== END 2021-09-29 23:59 ==
LOC: LAB.R 08:00
DX: E78.5 Hyperlipidemia, unspecified (principal); D64.9 Anemia, unspecified; N18.30 Chronic kidney disease, stage 3 unspecified; D37.01 Neoplasm of uncertain behavior of lip
CPT/HCPCS: 80048; 82728; 85025; 85379; 86140

== ENCOUNTER 2021-11-29 10:48 | Outpatient (CLI) | payer MEDICARE, MEDICAID ==
[2021-11-29 11:05] LABS: CREATININE 1.3 mg/dL (0.4-1.0); POTASSIUM 3.4 mmol/L (3.5-5.0)
== END 2021-11-29 10:49 | disposition home or self-care (01) ==
LOC: LAB.R 10:48
PROVIDERS: ATTEND Hospitalist
DX: E78.5 Hyperlipidemia, unspecified (principal); I10 Essential (primary) hypertension
CPT/HCPCS: 80048

== ENCOUNTER 2022-01-27 08:00 | Outpatient (CLI) | payer MEDICARE, MEDICAID ==
[2022-01-27 16:59] LABS: BASOPHILS # (AUTO) 0.1 10^3/uL (0.0-0.1); BASOPHILS % (AUTO) 0.7 %; EOSINOPHILS # (AUTO) 0.2 10^3/uL (0.0-0.7); EOSINOPHILS % (AUTO) 3.3 %; HCT - HEMATOCRIT 39.3 % (37.0-47.0); LYMPHOCYTES # (AUTO) 1.7 10^3/uL (1.5-3.5); LYMPHOCYTES % (AUTO) 23.1 %; MEAN CORPUSCULAR HEMOGLOBIN 29.9 pg (27.0-31.0); MEAN CORPUSCULAR HGB CONC 30.5 g/dL (32.0-36.0); MEAN CORPUSCULAR VOLUME 97.8 fL (81.0-99.0); MEAN PLATELET VOLUME 10.6 fL (7.9-10.8); MONOCYTES # (AUTO) 0.5 10^3/uL (0.0-1.0); MONOCYTES % (AUTO) 6.4 %; NEUTROPHILS # (AUTO) 4.8 10^3/uL (1.5-6.6); NEUTROPHILS % (AUTO) 66.2 %; PLT - PLATELET COUNT 258 10^3/uL (130-450); RED BLOOD COUNT 4.02 10^6/uL (4.20-5.40); RED CELL DISTRIBUTION WIDTH 13.4 % (12.0-15.0); WHITE BLOOD COUNT 7.3 x10^3/uL (4.8-10.8)
[2022-01-27 17:32] LABS: ALBUMIN 3.8 g/dL (3.2-5.5); BILIRUBIN,TOTAL 0.3 mg/dL (0.2-1.0); CALCIUM 9.4 mg/dL (8.5-10.3); CREATININE 1.3 mg/dL (0.4-1.0); POTASSIUM 4.1 mmol/L (3.5-5.0); TOTAL PROTEIN 7.7 g/dL (6.7-8.2)
== END 2022-01-27 23:59 | disposition home or self-care (01) ==
LOC: LAB.R 08:00
PROVIDERS: ATTEND Hospitalist
DX: E78.2 Mixed hyperlipidemia (principal); D64.9 Anemia, unspecified
CPT/HCPCS: 80053; 82728; 83540; 84466; 85025

== ENCOUNTER 2022-02-10 08:00 | Outpatient (CLI) | payer MEDICARE, MEDICAID ==
[2022-02-10 17:18] LABS: BASOPHILS % (AUTO) 0.7 %; EOSINOPHILS # (AUTO) 0.2 10^3/uL (0.0-0.7); EOSINOPHILS % (AUTO) 3.5 %; HCT - HEMATOCRIT 41.7 % (37.0-47.0); HGB - HEMOGLOBIN 12.7 g/dL (12.0-16.0); LYMPHOCYTES # (AUTO) 1.1 10^3/uL (1.5-3.5); LYMPHOCYTES % (AUTO) 24.3 %; MEAN CORPUSCULAR HEMOGLOBIN 30.4 pg (27.0-31.0); MEAN CORPUSCULAR HGB CONC 30.5 g/dL (32.0-36.0); MEAN CORPUSCULAR VOLUME 99.8 fL (81.0-99.0); MONOCYTES # (AUTO) 0.4 10^3/uL (0.0-1.0); MONOCYTES % (AUTO) 9.6 %; NEUTROPHILS # (AUTO) 2.8 10^3/uL (1.5-6.6); NEUTROPHILS % (AUTO) 61.5 %; PLT - PLATELET COUNT 244 10^3/uL (130-450); RED BLOOD COUNT 4.18 10^6/uL (4.20-5.40); RED CELL DISTRIBUTION WIDTH 14.6 % (12.0-15.0); WHITE BLOOD COUNT 4.6 x10^3/uL (4.8-10.8)
[2022-02-10 17:48] LABS: ALBUMIN 3.4 g/dL (3.2-5.5); ALKALINE PHOSPHATASE 60 IU/L (42-121); ALT ALANINE AMINOTRANSFERASE 19 IU/L (10-60); AST ASPARTATE AMINOTRANSFERASE 22 IU/L (10-42); BILIRUBIN,TOTAL 0.4 mg/dL (0.2-1.0); BUN - BLOOD UREA NITROGEN 34 mg/dL (6-20); CALCIUM 9.2 mg/dL (8.5-10.3); CARBON DIOXIDE - CO2 28 mmol/L (21-32); CHLORIDE 105 mmol/L (101-111); CHOL/HDL RATIO 3.1 (<4.4); CHOLESTEROL 147 mg/dL; CREATININE 1.1 mg/dL (0.4-1.0); GFR - MDRD 47 (>89); GLUCOSE 92 mg/dL (70-100); HDL CHOLESTEROL 47 mg/dL; LDL CHOLESTEROL,CALCULATED 78 mg/dL; LDL/HDL RATIO 1.7 (<4.4); POTASSIUM 4.3 mmol/L (3.5-5.0); SODIUM 142 mmol/L (135-145); TOTAL PROTEIN 6.9 g/dL (6.7-8.2); TRIGLYCERIDES 112 mg/dL; VLDL CHOLESTEROL 22 mg/dL
[2022-02-10 21:59] LABS: ESTIMATED AVERAGE GLUCOSE 114 mg/dL (70-100); HEMOGLOBIN A1c% 5.6 % (4.27-6.07)
== END 2022-02-10 23:59 | disposition home or self-care (01) ==
LOC: LAB.R 08:00
PROVIDERS: ATTEND Hospitalist
DX: D64.9 Anemia, unspecified (principal); E78.2 Mixed hyperlipidemia; N28.9 Disorder of kidney and ureter, unspecified
CPT/HCPCS: 80053; 80061; 83036; 83721; 84146; 85025

== ENCOUNTER 2022-03-23 08:00 | Outpatient (CLI) | payer MEDICARE, MEDICAID ==
[2022-03-23 16:37] LABS: BASOPHILS % (AUTO) 0.4 %; EOSINOPHILS # (AUTO) 0.1 10^3/uL (0.0-0.7); EOSINOPHILS % (AUTO) 1.3 %; HCT - HEMATOCRIT 37.8 % (37.0-47.0); HGB - HEMOGLOBIN 11.8 g/dL (12.0-16.0); LYMPHOCYTES # (AUTO) 1.3 10^3/uL (1.5-3.5); LYMPHOCYTES % (AUTO) 18.4 %; MEAN CORPUSCULAR HEMOGLOBIN 31.1 pg (27.0-31.0); MEAN CORPUSCULAR HGB CONC 31.2 g/dL (32.0-36.0); MEAN CORPUSCULAR VOLUME 99.7 fL (81.0-99.0); MEAN PLATELET VOLUME 10.5 fL (7.9-10.8); MONOCYTES # (AUTO) 0.6 10^3/uL (0.0-1.0); MONOCYTES % (AUTO) 8.4 %; NEUTROPHILS # (AUTO) 5.1 10^3/uL (1.5-6.6); NEUTROPHILS % (AUTO) 71.2 %; PLT - PLATELET COUNT 231 10^3/uL (130-450); RED BLOOD COUNT 3.79 10^6/uL (4.20-5.40); RED CELL DISTRIBUTION WIDTH 15.3 % (12.0-15.0); WHITE BLOOD COUNT 7.2 x10^3/uL (4.8-10.8)
[2022-03-23 16:53] LABS: ALBUMIN 3.7 g/dL (3.2-5.5); BILIRUBIN,TOTAL 0.4 mg/dL (0.2-1.0); CALCIUM 9.2 mg/dL (8.5-10.3); CREATININE 1.1 mg/dL (0.4-1.0); POTASSIUM 4.1 mmol/L (3.5-5.0); TOTAL PROTEIN 7.3 g/dL (6.7-8.2)
== END 2022-03-23 23:59 | disposition home or self-care (01) ==
LOC: LAB.R 08:00
PROVIDERS: ATTEND Hospitalist
DX: E78.2 Mixed hyperlipidemia (principal); D64.9 Anemia, unspecified
CPT/HCPCS: 80053; 85025

== ENCOUNTER 2022-03-24 08:00 | Outpatient (CLI) | payer MEDICARE, MEDICAID ==
[2022-03-24 19:09] LABS: BILIRUBIN,URINE NEGATIVE (NEGATIVE); GLUCOSE, URINE (UA) NEGATIVE (NEGATIVE); KETONES,URINE (UA) NEGATIVE (NEGATIVE); LEUKOCYTE ESTERASE, URINE NEGATIVE (NEGATIVE); NITRITE,URINE NEGATIVE (NEGATIVE); OCCULT BLOOD,URINE NEGATIVE (NEGATIVE); PROTEIN,URINE NEGATIVE (NEGATIVE); UROBILINOGEN,URINE 0.2 (NORMAL) E.U./dL (NORMAL)
[2022-03-24 19:13] LABS: CLARITY,URINE HAZY (CLEAR)
[2022-03-24 19:38] LABS: RBC,URINE 0-5 /HPF (0-5); SQUAMOUS EPITHELIAL CELL,UR MANY Squamous (<= Few); WBC,URINE 0-3 /HPF (0-5)
[2022-03-24 19:39] LABS: BACTERIA,URINE Moderate /HPF (None Seen)
== END 2022-03-24 23:59 | disposition home or self-care (01) ==
LOC: LAB.R 08:00
PROVIDERS: ATTEND Hospitalist
DX: N18.30 Chronic kidney disease, stage 3 unspecified (principal); N32.81 Overactive bladder; N28.9 Disorder of kidney and ureter, unspecified
CPT/HCPCS: 81001; 81003; 87086

== ENCOUNTER 2022-05-20 03:14 | Outpatient (CLI) | payer MEDICARE, MEDICAID | END 2022-05-20 03:15 | disposition critical access hospital (66) | LOC: EMS 03:14 | DX: S50.312A Abrasion of left elbow, initial encounter (principal); S61.412A Laceration without foreign body of left hand, initial encounter; W01.0XXA Fall on same level from slipping, tripping and stumbling without subsequent striking against object, initial encounter; Z91.81 History of falling; Y92.129 Unspecified place in nursing home as the place of occurrence of the external cause | CPT/HCPCS: A0425; A0429 ==

== ENCOUNTER 2022-05-20 03:23 | Emergency (ER) | payer MEDICARE, MEDICAID ==
[2022-05-20] MEDS ORDERED: TETANUS/DIPHTHERIA/PERTUSSIS 0.5 ML SYRINGE IM ONE (03:37)
--- NOTE | 2022-05-20 04:15 | ED Physician Documentation ---
History of Present Illness - Stated complaint Stated Complaint: GLF/ELBOW INJ - Chief complaint Chief Complaint: General - History obtained from History obtained from: Patient, EMS - Additonal information Additional information: Patient is an 87-year-old female who lives at [facility] presenting for evaluation after a fall. Patient was getting up from bed to go to the bathroom and using the aid of her walker when she fell. She is unclear what made her fall but denies that she felt dizzy lightheaded, had chest pain or difficulty breathing prior to falling. She did not hit her head or lose consciousness. She immediately called out to staff for help and they came to her aid. She has injury to the left elbow and reports tenderness to the left hip.She is unsure of her last tetanus. She does not take a blood thinner.She denies recently being ill. Review of Systems Constitutional: denies: Fever Nose: denies: Congestion Cardiac: denies: Chest pain / pressure Respiratory: denies: Dyspnea GI: denies: Abdominal Pain, Vomiting : denies: Dysuria Skin: reports: Laceration (s) Musculoskeletal: denies: Back pain Neurologic: denies: Headache PD PAST MEDICAL HISTORY - Past Medical History Cardiovascular: High cholesterol Neuro: Parkinson's GI: GERD Psych: Depression, Schizophrenia Musculoskeletal: Osteoarthritis Derm: Other - Present Medications Home Medications: Ambulatory Orders Medication Instructions Recorded Confirmed Hydralazine HCl 25 mg PO BID 07/07/18 03/15/22 Multivitamin W/Minerals [Theragran 1 tab PO DAILY 07/07/18 03/15/22 M] Potassium Chloride 30 meq PO DAILY 07/07/18 03/15/22 Triple Flex 1 tab PO BID 07/07/18 03/15/22 Bisacodyl Supp [Dulcolax Supp] 10 mg .ROUTE PRN PRN 03/17/20 03/15/22 Calcium Carbonate [Tums (Calcium 1 tab PO PRN PRN 03/17/20 03/15/22 Carbonate 500mg)] Famotidine 20 mg PO DAILY 03/17/20 03/15/22 Mineral Oil 1 unit .ROUTE PRN PRN 03/17/20 03/15/22 Oxybutynin Chloride [Ditropan Xl] 5 mg PO DAILY 03/17/20 03/15/22 Senna [Senokot] 8.6 mg PO BID 03/17/20 03/15/22 guaiFENesin [Tussin] 10 ml PO Q4HR PRN 03/17/20 03/15/22 Acetaminophen [Tylenol] 325 mg TN Q6H 12/21/21 03/15/22 Atorvastatin [Lipitor] 1 tab PO DAILY 12/21/21 03/15/22 Cholecalciferol [Vitamin D3] 1,000 unit PO DAILY 12/21/21 03/15/22 Cyanocobalamin (Vitamin B-12) 1,000 mcg PO DAILY 12/21/21 03/15/22 [Vitamin B-12] Lidocaine Patch 5% [Lidoderm Patch] 1 each TOP DAILY 12/21/21 03/15/22 Melatonin 3 mg PO DAILY 12/21/21 03/15/22 OLANZapine [Olanzapine] 10 mg PO DAILY PM 12/21/21 03/15/22 OLANZapine [Zyprexa] 2.5 mg PO DAILY 12/21/21 03/15/22 polyethylene glycoL 3350 [Miralax] 17 gm PO DAILY 12/21/21 03/15/22 - Allergies Allergies/Adverse Reactions: Allergies Allergy/AdvReac Type Severity Reaction Status Date / Time benazepril Allergy Unknown Verified 05/20/22 03:52 lisinopril Allergy Unknown Verified 05/20/22 03:52 metoprolol Allergy Unknown Verified 05/20/22 03:52 - Social History Does the pt smoke?: No Smoking Status: Never smoker Does the pt drink ETOH?: No Does the pt have substance abuse?: No - Immunizations Immunizations are current?: No - POLST Patient has POLST: Yes PD ED PE NORMAL - General General: Alert and oriented X 3, No acute distress, Well developed/nourished - HEENT HEENT: Atraumatic, PERRL, EOMI, Moist mucous membranes, Pharynx benign - Neck Neck: Supple, no meningeal sign, No bony TTP - Cardiac Cardiac: RRR, No murmur, Strong equal pulses - Respiratory Respiratory: No respiratory distress, Clear bilaterally - Abdomen Abdomen: Soft, Non tender, Non distended - Back Back: No spinal TTP - Derm Derm: Warm and dry - Extremities Extremities: Other (Skin tear to dorsum of left hand over left MCP, skin tear to left elbow, normal range of motion at all joints; Left hip tenderness) - Neuro Neuro: Alert and oriented X 3, sandblast carver 2-12 intact, No motor deficit, No sensory deficit, Normal speech Eye Opening: Spontaneous Motor: Obeys Commands Verbal: Oriented GCS Score: 15 Results - Vitals Vitals: Vital Signs - 24 hr 05/20/22 05/20/22 03:42 06:30 Temperature 36.8 C Heart Rate 73 74 Respiratory 16 16 Rate Blood Pressure 189/85 H 178/86 H O2 Saturation 97 96 Oxygen O2 Source Room air Procedures - Laceration (location) L elbow Length in cm: 1 Wound type: Linear (Skin tear) Neurovascular status: Sensory intact, Motor intact, Vascular intact Wound preparation: Hibiclens, Irrigated copiously NS Skin layer closure: Steri strips Other: Patient tolerated well, No complications, Neurovascular intact, Tetanus booster given L hand Length in cm: 1 Wound type: Linear Neurovascular status: Sensory intact, Motor intact, Vascular intact Tendon involvement: Tendon intact Wound preparation: Hibiclens, Irrigated copiously NS Skin layer closure: Steri strips Other: Patient tolerated well, No complications, Neurovascular intact, Tetanus UTD PD MEDICAL DECISION MAKING - ED course Complexity details: reviewed results, re-evaluated patient, d/w patient ED course: Patient presented after ground level fall at living facility. No head injury or signs of head trauma. Few small skin tears to left upper extremity with no significant bony tenderness. X-rays of left elbow and left hip which are negative for fracture. Patient was able to ambulate without any difficulty.She denies any symptoms prior to the fall. Suspect mechanical in nature. Patient would like to go home and is awaiting ride back to [facility]. 0530 - Patient ambulated to bathroom with no difficulty. Departure - Departure Disposition: 01 Home, Self Care Clinical Impression: Fall from ground level Skin tear of left upper arm without complication Qualifiers: Encounter type: initial encounter Qualified Code(s): S41.112A - Laceration without foreign body of left upper arm, initial encounter Condition: Stable Instructions: ED Fall Uncertain Cause, ED Laceration Ext Sutr Stap Tape Comments: You were evaluated after a fall. You had small skin tears to your left elbow and left hand that were closed with special tape called Steri-Strips. These will fall off on their own over the course of the next week.You were also given a tetanus booster. X-rays did not show any broken or out of place bones and you appear to be able to walk at your baseline. Please take extra precautions when moving around and using your walker.If you have any worsening symptoms please return to the emergency department.
[2022-05-20 06:48] VITALS: BP 178/86
--- NOTE | 2022-05-20 09:08 | XRAY Report ---
PROCEDURE: Hip w/Pelvis 2-3V LT INDICATIONS: fall/pain TECHNIQUE: AP pelvis with lateral view(s) of the left hip(s). COMPARISON: 07/07/2018 FINDINGS: Bones: No fractures or dislocations. Pelvic ring appears intact. No suspicious bony lesions. Age-a ppropriate osteopenia can be seen. There is at least moderate superior joint space narrowing seen involving the hip. There is associated remodeling change, with subchondral sclerosis and osteophyte formation. Soft tissues: The visualized bowel gas pattern is normal. No suspicious soft tissue calcifications. IMPRESSION: No acute bony abnormality is seen. At least moderate bilateral hip degenerative change is seen. Note: No significant discrepancy from the preliminary report. Reviewed by: Anival Carbajal MD on 05/20/2022 8:06 AM JAVIER Approved by: Anival Carbajal MD on 05/20/2022 8:06 AM JAVIER Station ID: [id number]
--- NOTE | 2022-05-20 09:09 | XRAY Report ---
PROCEDURE: Elbow 3 View LT INDICATIONS: fall TECHNIQUE: 3 views of the elbow were acquired. COMPARISON: None FINDINGS: Bones: No fractures or dislocations. No suspicious bony lesions. There is calcification along the l ateral humeral epicondyle. Age-appropriate degenerative changes are seen. Soft tissues: No significant elbow joint effusion. No suspicious soft tissue calcifications. IMPRESSION: Negative for acute fracture. Likely prior lateral epicondylitis. Note: No significant discrepancy from the preliminary report. Reviewed by: Anival Carbajal MD on 05/20/2022 8:07 AM JAVIER Approved by: Anival Carbajal MD on 05/20/2022 8:07 AM JAVIER Station ID: [id number]
== END 2022-05-20 06:58 | disposition home or self-care (01) ==
LOC: EDUNIT# → ED 03:23
DX: S61.412A Laceration without foreign body of left hand, initial encounter (principal); S51.012A Laceration without foreign body of left elbow, initial encounter; W18.39XA Other fall on same level, initial encounter; Y93.89 Activity, other specified; Y92.193 Bedroom in other specified residential institution as the place of occurrence of the external cause
CPT/HCPCS: 12001; 90471; 99284

== ENCOUNTER 2022-05-22 07:01 | Outpatient (CLI) | payer MEDICARE, MEDICAID | END 2022-05-22 07:02 | disposition critical access hospital (66) | LOC: EMS 07:01 | DX: M54.50 Low back pain, unspecified (principal); W19.XXXA Unspecified fall, initial encounter; Y92.129 Unspecified place in nursing home as the place of occurrence of the external cause | CPT/HCPCS: A0425; A0429 ==

== ENCOUNTER 2022-05-22 07:09 | Emergency (ER) | payer MEDICARE, MEDICAID ==
[2022-05-22 07:53] LABS: BASOPHILS % (AUTO) 0.2 %; EOSINOPHILS # (AUTO) 0.2 10^3/uL (0.0-0.7); EOSINOPHILS % (AUTO) 3.7 %; HCT - HEMATOCRIT 42.4 % (37.0-47.0); HGB - HEMOGLOBIN 13.4 g/dL (12.0-16.0); LYMPHOCYTES # (AUTO) 1.2 10^3/uL (1.5-3.5); LYMPHOCYTES % (AUTO) 19.8 %; MEAN CORPUSCULAR HEMOGLOBIN 31.3 pg (27.0-31.0); MEAN CORPUSCULAR HGB CONC 31.6 g/dL (32.0-36.0); MEAN CORPUSCULAR VOLUME 99.1 fL (81.0-99.0); MEAN PLATELET VOLUME 9.8 fL (7.9-10.8); MONOCYTES # (AUTO) 0.4 10^3/uL (0.0-1.0); MONOCYTES % (AUTO) 5.7 %; NEUTROPHILS # (AUTO) 4.4 10^3/uL (1.5-6.6); NEUTROPHILS % (AUTO) 70.4 %; PLT - PLATELET COUNT 215 10^3/uL (130-450); RED BLOOD COUNT 4.28 10^6/uL (4.20-5.40); RED CELL DISTRIBUTION WIDTH 14.6 % (12.0-15.0); WHITE BLOOD COUNT 6.3 x10^3/uL (4.8-10.8)
[2022-05-22 08:08] LABS: ALBUMIN 3.8 g/dL (3.2-5.5); BILIRUBIN,TOTAL 0.6 mg/dL (0.2-1.0); CALCIUM 9.5 mg/dL (8.5-10.3); CREATININE 1.2 mg/dL (0.4-1.0); POTASSIUM 3.8 mmol/L (3.5-5.0); TOTAL PROTEIN 7.6 g/dL (6.7-8.2)
--- NOTE | 2022-05-22 08:08 | ED Physician Documentation ---
History of Present Illness - Stated complaint Stated Complaint: UNWITNESSED FALL - Chief complaint Chief Complaint: Trauma Ch/Bk - History obtained from History obtained from: Patient, EMS - Additonal information Additional information: Patient is a 87-year-old female, resides at [facility], presenting for evaluation of an unwitnessed fall. Patient was reportedly found next to her bed. Per EMS, staff heard her fall from outside of her room and immediately came to her attention. Patient denies hitting her head but is not sure of what made her fall. She believes she was sleeping and fell out of bed. She has a skin tear to the right hand. Her only complaint is low back/tailbone pain. Her tetanus is up-to-date.Per EMS, she has some baseline confusion. She is not on a blood thinner. Review of Systems Constitutional: denies: Fever Cardiac: denies: Chest pain / pressure Respiratory: denies: Dyspnea GI: denies: Abdominal Pain : denies: Dysuria Musculoskeletal: reports: Back pain Neurologic: denies: Headache PD PAST MEDICAL HISTORY - Past Medical History Cardiovascular: High cholesterol Neuro: Parkinson's GI: GERD Psych: Depression, Schizophrenia Musculoskeletal: Osteoarthritis Derm: Other - Present Medications Home Medications: Ambulatory Orders Medication Instructions Recorded Confirmed Hydralazine HCl 25 mg PO BID 07/07/18 05/22/22 Multivitamin W/Minerals [Theragran 1 tab PO DAILY 07/07/18 05/22/22 M] Potassium Chloride 30 meq PO DAILY 07/07/18 05/22/22 Triple Flex 1 tab PO BID 07/07/18 05/22/22 Bisacodyl Supp [Dulcolax Supp] 10 mg .ROUTE PRN PRN 03/17/20 05/22/22 Calcium Carbonate [Tums (Calcium 1 tab PO PRN PRN 03/17/20 05/22/22 Carbonate 500mg)] Famotidine 20 mg PO DAILY 03/17/20 05/22/22 Mineral Oil 1 unit .ROUTE PRN PRN 03/17/20 05/22/22 Oxybutynin Chloride [Ditropan Xl] 5 mg PO DAILY 03/17/20 05/22/22 Senna [Senokot] 8.6 mg PO BID 03/17/20 05/22/22 guaiFENesin [Tussin] 10 ml PO Q4HR PRN 03/17/20 05/22/22 Acetaminophen [Tylenol] 325 mg NC Q6H 12/21/21 05/22/22 Atorvastatin [Lipitor] 1 tab PO DAILY 12/21/21 05/22/22 Cholecalciferol [Vitamin D3] 1,000 unit PO DAILY 12/21/21 05/22/22 Cyanocobalamin (Vitamin B-12) 1,000 mcg PO DAILY 12/21/21 05/22/22 [Vitamin B-12] Lidocaine Patch 5% [Lidoderm Patch] 1 each TOP DAILY 12/21/21 05/22/22 Melatonin 3 mg PO DAILY 12/21/21 05/22/22 OLANZapine [Olanzapine] 10 mg PO DAILY PM 12/21/21 05/22/22 OLANZapine [Zyprexa] 2.5 mg PO DAILY 12/21/21 05/22/22 polyethylene glycoL 3350 [Miralax] 17 gm PO DAILY 12/21/21 05/22/22 - Allergies Allergies/Adverse Reactions: Allergies Allergy/AdvReac Type Severity Reaction Status Date / Time benazepril Allergy Unknown Verified 05/22/22 08:00 lisinopril Allergy Unknown Verified 05/22/22 08:00 metoprolol Allergy Unknown Verified 05/22/22 08:00 - Social History Does the pt smoke?: No Smoking Status: Never smoker Does the pt drink ETOH?: No Does the pt have substance abuse?: No - Immunizations Immunizations are current?: No - POLST Patient has POLST: Yes PD ED PE NORMAL - General General: No acute distress, Well developed/nourished, Other (Alert, oriented to person, place, situation, able to recall month but not year) - HEENT HEENT: Atraumatic, PERRL, EOMI, Moist mucous membranes, Pharynx benign - Neck Neck: Supple, no meningeal sign, No bony TTP, C-Spine cleared by NEXUS criteria - Cardiac Cardiac: RRR, No murmur, Strong equal pulses - Respiratory Respiratory: No respiratory distress, Clear bilaterally - Abdomen Abdomen: Normal bowel sounds, Soft, Non tender, Non distended - Back Back: No CVA TTP, Other (Mild low lumbar tenderness to palpation with no bony step-offs, no deformities,No swelling or contusions) - Derm Derm: Warm and dry - Extremities Extremities: No tenderness to palpate, Normal ROM s pain, Other (Small skin tear to right hand with no bony tenderness, full range of motion at all joints of the hand and wrist) - 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 No: Alert and oriented X 3 (Alert, oriented to person, place, situation, able to recall month but not year) Results - Vitals Vitals: Vital Signs - 24 hr 05/22/22 05/22/22 07:43 09:46 Temperature 36.5 C Heart Rate 70 70 Respiratory 18 16 Rate Blood Pressure 160/89 H 135/70 H O2 Saturation 95 98 Oxygen O2 Source Room air - Labs Labs: Laboratory Tests 05/22/22 05/22/22 07:49 07:49 WBC 6.3 RBC 4.28 Hgb 13.4 Hct 42.4 MCV 99.1 H MCH 31.3 H MCHC 31.6 L RDW 14.6 Plt Count 215 MPV 9.8 Neut # (Auto) 4.4 Lymph # (Auto) 1.2 [place] # (Auto) 0.4 Eos # (Auto) 0.2 Baso # (Auto) 0.0 Absolute Nucleated RBC 0.00 Nucleated RBC % 0.0 Sodium 141 Potassium 3.8 Chloride 103 Carbon Dioxide 29 Anion Gap 9.0 BUN 37 H Creatinine 1.2 H Estimated GFR (MDRD) 42 L Glucose 95 Calcium 9.5 Total Bilirubin 0.6 AST 24 ALT 21 Alkaline Phosphatase 67 Total Protein 7.6 Albumin 3.8 Globulin 3.8 Albumin/Globulin Ratio 1.0 Procedures - Laceration (location) R hand Length in cm: 2 Wound type: Curved Neurovascular status: Sensory intact, Motor intact, Vascular intact Tendon involvement: Tendon intact Wound preparation: Hibiclens, Irrigated copiously NS Skin layer closure: Steri strips Other: Patient tolerated well, No complications, Neurovascular intact, Tetanus UTD PD MEDICAL DECISION MAKING - ED course Complexity details: reviewed results, re-evaluated patient, d/w patient, d/w family ED course: Patient presenting for evaluation after unwitnessed fall. No neck pain and patient appears at her neurologic baseline so C-spine is cleared. CT head and low back were obtained given reports of tailbone pain. No findings on CT imaging and labs are unremarkable. Patient is able to ambulate here. No deficits to suggest a stroke. She again appears to be at her baseline and I suspect that she had fallen out of bed this morning. She was seen here 2 days ago for similar symptoms. Discussed with her nephew. 899 - Pt able to ambulate with walker. 909 - Discussed with nephew. He went to see her yesterday and they sat outside and talked. He has discussed with her living facility that she needs more monitoring and asked for bed rails but they stated they were not able to do this. I offered the suggestion of a bed alarm which she likes the idea of and will talk to them about this. He is comfortable with taking her home and will come to the emergency department to give her a ride back to [facility]. Departure - Departure Disposition: 01 Home, Self Care Clinical Impression: Coccygeal pain, acute Fall at correction Qualifiers: Encounter type: initial encounter Qualified Code(s): W19.XXXA - Unspecified fall, initial encounter Skin tear of right hand without complication Qualifiers: Encounter type: initial encounter Qualified Code(s): S61.411A - Laceration without foreign body of right hand, initial encounter Condition: Stable Instructions: Falls Prevent Move Safe Chair Bed, ED Contusion Sacrum Coccyx, ED Laceration Ext Sutr Stap Tape Comments: You were evaluated after an unwitnessed fall. It sounds that you may have fallen out of your bed which is happened now twice in the last few days. A bed alarm may be helpful but additional measures Should be taken to prevent additional falls from your bed as you were trying to get up. A CT scan of your head and lower back/tailbone Do not show any broken bones or other injuries. Your labs are also reassuring. You are able to walk for rest which is also a good sign. Please make sure you ask for help when trying to get out of bed. If you have any new symptoms please return to the emergency department. You have a small skin tear on your right hand that was closed with Steri-Strips. These will fall off on their own in the next few days. Discharge Date/Time: 05/22/22 10:10
[2022-05-22] MEDS ORDERED: LIDOCAINE PATCH 5% TOP STA (08:14)
--- NOTE | 2022-05-22 08:14 | CT Report ---
PROCEDURE: HEAD WO INDICATIONS: unwitnessed fall TECHNIQUE: Noncontrast 4.5 mm thick angled axial sections acquired from the foramen magnum to the vertex. For r adiation dose reduction, the following was used: automated exposure control, adjustment of mA and/or kV according to patient size. COMPARISON: None. FINDINGS: Image quality: Excellent. CSF spaces: Basal cisterns are patent. No extra-axial fluid collections. Ventricles are normal in size and shape. Brain: No midline shift. No intracranial masses or hemorrhage. Farooq-white matter interface is norm al. Moderate volume loss. Moderate periventricular white matter hypoattenuation, likely chronic smal l vessel disease. There are vascular calcifications. Skull and face: Calvarium and visualized facial bones are intact, without suspicious lesions. Sinuses: Mucous cyst in the left maxillary sinus. IMPRESSION: No acute intracranial abnormality. Volume loss and probable small vessel ischemic change s. Reviewed by: Mumtaz Clarke MD on 05/22/2022 8:12 AM PDT Approved by: Mumtaz Clarke MD on 05/22/2022 8:12 AM PDT Station ID: [id number]
--- NOTE | 2022-05-22 08:19 | CT Report ---
PROCEDURE: LUMBAR SPINE WO INDICATIONS: fall/pain TECHNIQUE: Noncontrast 3 mm thick sections acquired from the T12 level to the sacrum. Sagittal and coronal refo rmats were constructed. For radiation dose reduction, the following was used: automated exposure co ntrol, adjustment of mA and/or kV according to patient size. COMPARISON: None. FINDINGS: Image quality: Excellent. Bones: There is trace anterolisthesis of L4 on S1. Ultimately level degenerative disc space narrowin g with vacuum disc is present throughout the lumbar spine most severe at L5-S1. Nonbridging anterior osteophytes are present. There is no visualized fracture or dislocation. Multilevel disc bulges, spin al stenosis and foraminal narrowing are present. Soft tissues: No retroperitoneal masses or hematomas. Visualized aorta is normal in caliber. Aorti c calcifications are present consistent with atherosclerotic change. Heart is enlarged. IMPRESSION: Multilevel degenerative changes without visualized fracture. Reviewed by: Radha Guevara MD on 05/22/2022 8:17 AM PDT Approved by: Radha Guevara MD on 05/22/2022 8:17 AM PDT Station ID: [id number]
[2022-05-22 09:46] VITALS: BP 135/70
== END 2022-05-22 10:10 | disposition home or self-care (01) ==
LOC: EDUNIT# → ED 07:09
DX: S61.411A Laceration without foreign body of right hand, initial encounter (principal); M53.3 Sacrococcygeal disorders, not elsewhere classified; W19.XXXA Unspecified fall, initial encounter; R41.0 Disorientation, unspecified
CPT/HCPCS: 12001; 36415; 70450; 72131; 80053; 85025; 99283; 99284; A9270

== ENCOUNTER 2022-08-13 08:00 | Outpatient (CLI) | payer MEDICARE, MEDICAID ==
[2022-08-13 08:49] LABS: BASOPHILS % (AUTO) 0.5 %; EOSINOPHILS # (AUTO) 0.1 10^3/uL (0.0-0.7); EOSINOPHILS % (AUTO) 2.1 %; HCT - HEMATOCRIT 40.8 % (37.0-47.0); HGB - HEMOGLOBIN 12.8 g/dL (12.0-16.0); LYMPHOCYTES # (AUTO) 1.7 10^3/uL (1.5-3.5); LYMPHOCYTES % (AUTO) 27.1 %; MEAN CORPUSCULAR HEMOGLOBIN 30.8 pg (27.0-31.0); MEAN CORPUSCULAR HGB CONC 31.4 g/dL (32.0-36.0); MEAN CORPUSCULAR VOLUME 98.3 fL (81.0-99.0); MEAN PLATELET VOLUME 10.1 fL (7.9-10.8); MONOCYTES # (AUTO) 0.3 10^3/uL (0.0-1.0); MONOCYTES % (AUTO) 5.3 %; NEUTROPHILS % (AUTO) 64.5 %; PLT - PLATELET COUNT 316 10^3/uL (130-450); RED BLOOD COUNT 4.15 10^6/uL (4.20-5.40); RED CELL DISTRIBUTION WIDTH 13.6 % (12.0-15.0); WHITE BLOOD COUNT 6.2 x10^3/uL (4.8-10.8)
[2022-08-13 09:02] LABS: ALBUMIN 3.7 g/dL (3.2-5.5); ALBUMIN/GLOBULIN RATIO 0.9 (1.0-2.2); ALKALINE PHOSPHATASE 56 IU/L (42-121); ALT ALANINE AMINOTRANSFERASE 38 IU/L (10-60); AST ASPARTATE AMINOTRANSFERASE 25 IU/L (10-42); BILIRUBIN,TOTAL 0.5 mg/dL (0.2-1.0); BUN - BLOOD UREA NITROGEN 31 mg/dL (6-20); CALCIUM 9.3 mg/dL (8.5-10.3); CARBON DIOXIDE - CO2 29 mmol/L (21-32); CHLORIDE 101 mmol/L (101-111); CHOL/HDL RATIO 3.6 (<4.4); CHOLESTEROL 155 mg/dL; CREATININE 1.1 mg/dL (0.4-1.0); GFR - MDRD 47 (>89); GLUCOSE 125 mg/dL (70-100); HDL CHOLESTEROL 43 mg/dL; LDL CHOLESTEROL,CALCULATED 83 mg/dL; LDL/HDL RATIO 1.9 (<4.4); POTASSIUM 3.7 mmol/L (3.5-5.0); SODIUM 140 mmol/L (135-145); TOTAL PROTEIN 7.9 g/dL (6.7-8.2); TRIGLYCERIDES 147 mg/dL; VLDL CHOLESTEROL 29 mg/dL
[2022-08-13 20:33] LABS: ESTIMATED AVERAGE GLUCOSE 120 mg/dL (70-100); HEMOGLOBIN A1c% 5.8 % (4.27-6.07)
== END 2022-08-13 23:59 | disposition home or self-care (01) ==
LOC: LAB.R 08:00
PROVIDERS: ATTEND Internal Medicine
DX: I10 Essential (primary) hypertension (principal); E78.5 Hyperlipidemia, unspecified; D64.9 Anemia, unspecified; E11.9 Type 2 diabetes mellitus without complications; D75.89 Other specified diseases of blood and blood-forming organs
CPT/HCPCS: 80053; 80061; 83036; 83721; 85025

== ENCOUNTER 2022-08-16 12:10 | Outpatient (CLI) | payer MEDICARE, MEDICAID ==
[2022-08-16 13:16] LABS: B. PARAPERTUSSIS- RESP PCR PAN NOT DETECTED; B. PERTUSSIS- RESP PCR PANEL NOT DETECTED; C. PNEUMONIAE- RESP PCR PANEL NOT DETECTED; CORONAVIRUS 229E-RESP PCR NOT DETECTED; CORONAVIRUS HKU1-RESP PCR NOT DETECTED; CORONAVIRUS NL63-RESP PCR NOT DETECTED; CORONAVIRUS OC43-RESP PCR NOT DETECTED; HUMAN METAPNEUMOVIRUS NOT DETECTED; INFLUENZA A- RESP PCR PANEL NOT DETECTED; INFLUENZA B - RESP PCR PANEL NOT DETECTED; M. PNEUMONIAE- RESP PCR PANEL NOT DETECTED; PARAINFLUENZA VIRUS 1 NOT DETECTED; PARAINFLUENZA VIRUS 2 NOT DETECTED; PARAINFLUENZA VIRUS 3 NOT DETECTED; PARAINFLUENZA VIRUS 4 NOT DETECTED; RHINOVIRUS/ENTEROVIRUS NOT DETECTED; RSV- RESP PCR PANEL NOT DETECTED; SARS-CoV-2 -RESP PCR PANEL NOT DETECTED
== END 2022-08-16 12:11 | disposition home or self-care (01) ==
LOC: LAB.R 12:10
PROVIDERS: ATTEND Internal Medicine
DX: R05.9 Cough, unspecified (principal); Z20.822 Contact with and (suspected) exposure to COVID-19
CPT/HCPCS: 87633

== ENCOUNTER 2022-08-25 08:00 | Outpatient (CLI) | payer MEDICARE, MEDICAID ==
[2022-08-25 22:13] LABS: B. PARAPERTUSSIS- RESP PCR PAN NOT DETECTED; B. PERTUSSIS- RESP PCR PANEL NOT DETECTED; C. PNEUMONIAE- RESP PCR PANEL NOT DETECTED; CORONAVIRUS 229E-RESP PCR NOT DETECTED; CORONAVIRUS HKU1-RESP PCR NOT DETECTED; CORONAVIRUS NL63-RESP PCR NOT DETECTED; CORONAVIRUS OC43-RESP PCR NOT DETECTED; HUMAN METAPNEUMOVIRUS NOT DETECTED; INFLUENZA A- RESP PCR PANEL NOT DETECTED; INFLUENZA B - RESP PCR PANEL NOT DETECTED; M. PNEUMONIAE- RESP PCR PANEL NOT DETECTED; PARAINFLUENZA VIRUS 1 NOT DETECTED; PARAINFLUENZA VIRUS 2 NOT DETECTED; PARAINFLUENZA VIRUS 3 NOT DETECTED; PARAINFLUENZA VIRUS 4 NOT DETECTED; RHINOVIRUS/ENTEROVIRUS NOT DETECTED; RSV- RESP PCR PANEL DETECTED; SARS-CoV-2 -RESP PCR PANEL NOT DETECTED
== END 2022-08-25 23:59 | disposition home or self-care (01) ==
LOC: LAB.R 08:00
DX: Z13.83 Encounter for screening for respiratory disorder NEC (principal); Z20.822 Contact with and (suspected) exposure to COVID-19
CPT/HCPCS: 87633

== ENCOUNTER 2023-01-03 16:16 | Outpatient (CLI) | payer MEDICARE, MEDICAID | END 2023-01-03 23:59 | disposition critical access hospital (66) | LOC: EMS 16:16 | DX: F03.92 Unspecified dementia, unspecified severity, with psychotic disturbance (principal); F20.9 Schizophrenia, unspecified; Z91.148 Patient's other noncompliance with medication regimen for other reason | CPT/HCPCS: A0425; A0429 ==

== ENCOUNTER 2023-01-03 16:21 | Emergency (ER) | payer MEDICARE, MEDICAID ==
[2023-01-03 16:47] LABS: BASOPHILS % (AUTO) 0.5 %; EOSINOPHILS # (AUTO) 0.1 10^3/uL (0.0-0.7); EOSINOPHILS % (AUTO) 1.4 %; HCT - HEMATOCRIT 41.1 % (37.0-47.0); HGB - HEMOGLOBIN 12.8 g/dL (12.0-16.0); LYMPHOCYTES # (AUTO) 1.8 10^3/uL (1.5-3.5); LYMPHOCYTES % (AUTO) 27.8 %; MEAN CORPUSCULAR HEMOGLOBIN 30.5 pg (27.0-31.0); MEAN CORPUSCULAR HGB CONC 31.1 g/dL (32.0-36.0); MEAN CORPUSCULAR VOLUME 97.9 fL (81.0-99.0); MEAN PLATELET VOLUME 10.7 fL (7.9-10.8); MONOCYTES # (AUTO) 0.5 10^3/uL (0.0-1.0); MONOCYTES % (AUTO) 8.4 %; NEUTROPHILS # (AUTO) 3.9 10^3/uL (1.5-6.6); NEUTROPHILS % (AUTO) 61.6 %; PLT - PLATELET COUNT 184 10^3/uL (130-450); RED CELL DISTRIBUTION WIDTH 13.7 % (12.0-15.0); WHITE BLOOD COUNT 6.3 x10^3/uL (4.8-10.8)
--- NOTE | 2023-01-03 16:58 | ED Physician Documentation ---
PD HPI MHE - Stated complaint Stated Complaint: PARANOIA - Chief complaint Chief Complaint: General - History obtained from History obtained from: Patient, EMS, Caregiver (patient unable to give history herself due to dementia.) - History of Present Illness Primary symptom: Other (the patient was refusing to take her daily medications. She held them in her hand and was not giving them up. She told the staff she believed they were the wrong medications. Did not act out nor aggressive. Just refusing meds.) Timing - onset: Today Contributing factors: Other (schizophrenic and dementia.) Similar symptoms before: Has not had sx before Recently seen: Not recently seen Review of Systems Unable to obtain: Dementia, Other (info from caregivers) PD PAST MEDICAL HISTORY - Past Medical History Past Medical History: Yes Cardiovascular: Hypertension, High cholesterol Respiratory: None Neuro: Parkinson's Endocrine/Autoimmune: None GI: GERD MEDICAL IMAGING TECH: None : Renal insuffiency Psych: Depression, Schizophrenia Musculoskeletal: Osteoarthritis Derm: Other - Present Medications Home Medications: Ambulatory Orders Medication Instructions Recorded Confirmed Hydralazine HCl 25 mg PO BID 07/07/18 01/03/23 Multivitamin W/Minerals [Theragran 1 tab PO DAILY 07/07/18 10/12/22 M] Potassium Chloride 30 meq PO DAILY 07/07/18 01/03/23 Bisacodyl Supp [Dulcolax Supp] 10 mg .ROUTE PRN PRN 03/17/20 01/03/23 Calcium Carbonate [Tums (Calcium 1 tab PO PRN PRN 03/17/20 01/03/23 Carbonate 500mg)] Famotidine 20 mg PO DAILY 03/17/20 01/03/23 Mineral Oil 1 unit .ROUTE PRN PRN 03/17/20 01/03/23 Oxybutynin Chloride [Ditropan Xl] 5 mg PO DAILY 03/17/20 01/03/23 Senna [Senokot] 8.6 mg PO DAILY PRN 03/17/20 01/03/23 Acetaminophen [Tylenol] 325 mg WI Q6H 12/21/21 01/03/23 Atorvastatin [Lipitor] 10 mg PO DAILY 12/21/21 01/03/23 Cholecalciferol [Vitamin D3] 1,000 unit PO DAILY 12/21/21 10/12/22 Cyanocobalamin (Vitamin B-12) 1,000 mcg PO DAILY 12/21/21 01/03/23 [Vitamin B-12] Lidocaine Patch 5% [Lidoderm Patch] 1 each TOP DAILY 12/21/21 01/03/23 Melatonin 3 mg PO DAILY 12/21/21 10/12/22 OLANZapine [Zyprexa] 2.5 mg PO BID 12/21/21 01/03/23 polyethylene glycoL 3350 [Miralax] 17 gm PO DAILY 12/21/21 01/03/23 OLANZapine [Zyprexa] 7.5 mg PO HS 01/03/23 01/03/23 Sertraline HCl [Zoloft] 75 mg PO DAILY 01/03/23 01/03/23 - Allergies Allergies/Adverse Reactions: Allergies Allergy/AdvReac Type Severity Reaction Status Date / Time benazepril Allergy Unknown Verified 01/03/23 16:29 lisinopril Allergy Unknown Verified 01/03/23 16:29 metoprolol Allergy Unknown Verified 01/03/23 16:29 - Social History Does the pt smoke?: No Smoking Status: Never smoker Does the pt drink ETOH?: No Does the pt have substance abuse?: No - Immunizations Immunizations are current?: No - POLST Patient has POLST: Yes PD ED PE NORMAL - Vitals Vital signs reviewed: Yes - General General: No acute distress, Well developed/nourished, Other (she is pleasant and cooperative here. Able to tell me symptoms in the present. She states she does recall not taking meds today. She says they looked different and did not think they were the right ones, so did not want to take them. ) - HEENT HEENT: Atraumatic, PERRL, EOMI - Neck Neck: Supple, no meningeal sign, No adenopathy - Cardiac Cardiac: RRR, No murmur - Respiratory Respiratory: Clear bilaterally - Abdomen Abdomen: Soft, Non tender - Derm Derm: Normal color, Warm and dry - Extremities Extremities: No edema, No calf tenderness / cord - Neuro Neuro: No motor deficit, No sensory deficit Results - Vitals Vitals: Vital Signs - 24 hr 01/03/23 01/03/23 16:29 20:47 Temperature 36.7 C Heart Rate 42 L 78 Respiratory 16 16 Rate Blood Pressure 136/94 H 164/87 H O2 Saturation 98 97 Oxygen O2 Source Room air - Labs Labs: Laboratory Tests 01/03/23 01/03/23 01/03/23 16:43 16:43 16:43 WBC 6.3 RBC 4.20 Hgb 12.8 Hct 41.1 MCV 97.9 MCH 30.5 MCHC 31.1 L RDW 13.7 Plt Count 184 MPV 10.7 Neut # (Auto) 3.9 Lymph # (Auto) 1.8 [place] # (Auto) 0.5 Eos # (Auto) 0.1 Baso # (Auto) 0.0 Absolute Nucleated RBC 0.00 Nucleated RBC % 0.0 Sodium 141 Potassium 4.0 Chloride 106 Carbon Dioxide 25 Anion Gap 10.0 BUN 34 H Creatinine 1.3 H Estimated GFR (MDRD) 39 L Glucose 95 Calcium 9.1 Total Bilirubin 0.5 AST 17 ALT 22 Alkaline Phosphatase 53 Total Protein 6.8 Albumin 3.5 Globulin 3.3 Albumin/Globulin Ratio 1.1 Lipase 61 H TSH 5.40 Nasal Adenovirus (PCR) Nasal B. parapertussis DNA (PCR) Nasal Coronavir 229E PCR Nasal Coronavir HKU1 PCR Nasal Coronavir NL63 PCR Nasal Coronavir OC43 PCR Nasal Enterovir/Rhinovir PCR Nasal Influenza B PCR Nasal Influenza A PCR Nasal Parainfluen 1 PCR Nasal Parainfluen 2 PCR Nasal Parainfluen 3 PCR Nasal Parainfluen 4 PCR Nasal RSV (PCR) Nasal B.pertussis DNA PCR Nasal C.pneumoniae (PCR) Mo Human Metapneumo PCR Nasal M.pneumoniae (PCR) Nasal SARS-CoV-2 (PCR) Salicylates < 6.0 Acetaminophen < 10 L Ethyl Alcohol < 5.0 01/03/23 17:47 WBC RBC Hgb Hct MCV MCH MCHC RDW Plt Count MPV Neut # (Auto) Lymph # (Auto) [place] # (Auto) Eos # (Auto) Baso # (Auto) Absolute Nucleated RBC Nucleated RBC % Sodium Potassium Chloride Carbon Dioxide Anion Gap BUN Creatinine Estimated GFR (MDRD) Glucose Calcium Total Bilirubin AST ALT Alkaline Phosphatase Total Protein Albumin Globulin Albumin/Globulin Ratio Lipase TSH Nasal Adenovirus (PCR) NOT DETECTED Nasal B. parapertussis DNA (PCR) NOT DETECTED Nasal Coronavir 229E PCR NOT DETECTED Nasal Coronavir HKU1 PCR NOT DETECTED Nasal Coronavir NL63 PCR NOT DETECTED Nasal Coronavir OC43 PCR NOT DETECTED Nasal Enterovir/Rhinovir PCR DETECTED A Nasal Influenza B PCR NOT DETECTED Nasal Influenza A PCR NOT DETECTED Nasal Parainfluen 1 PCR NOT DETECTED Nasal Parainfluen 2 PCR NOT DETECTED Nasal Parainfluen 3 PCR NOT DETECTED Nasal Parainfluen 4 PCR NOT DETECTED Nasal RSV (PCR) NOT DETECTED Nasal B.pertussis DNA PCR NOT DETECTED Nasal C.pneumoniae (PCR) NOT DETECTED Mo Human Metapneumo PCR NOT DETECTED Nasal M.pneumoniae (PCR) NOT DETECTED Nasal SARS-CoV-2 (PCR) NOT DETECTED Salicylates Acetaminophen Ethyl Alcohol PD Medical Decision Making - ED course Complexity details: reviewed results (I ordered basic chemistry blood test to evaluate for problems such as blood sugar or hyponatremia etc. Basic blood tests were normal. She appears well. She took her medicines readily. I do not see a reason not to be able to go back to her care facility.), considered differential (The patient was calm and cooperative here. She states she thought the medications did not look right so did not want to take them. No aggressive behavior reported. I asked if she would be willing to take the medications here and she agreed. I ordered the essential ones at this time.), d/w patient Reviewed Lab Results: She does test positive for rhinovirus. She is not having any fever or notable cough or congestion. However the slight illness may be making her slightly grumpy or such. However she took her medicines readily here in the care facility is willing to accept her back. Departure - Departure Disposition: 01 Home, Self Care Clinical Impression: Schizoaffective disorder, Paranoid behavior, Upper respiratory infection Condition: Stable Record reviewed to determine appropriate education?: Yes Instructions: ED Schizo Affective Disorder Comments: We did basic blood tests here which appeared normal. Nathalie was calm and talkative and interacted pleasantly. She easily and willingly took her oral medications here. She states she felt the medication she was being given at the care facility were not the right ones. She states she is willing to take them to this evening. At this point I do not see a need for obvious change in treatment. Continue current medications. The report from the care facility is that this is not necessarily a patterned problem. Follow-up with your primary care. Discharge Date/Time: 01/03/23 20:48
[2023-01-03 17:03] LABS: ACETAMINOPHEN < 10 ug/mL (10-30); ALBUMIN 3.5 g/dL (3.2-5.5); ALBUMIN/GLOBULIN RATIO 1.1 (1.0-2.2); ALKALINE PHOSPHATASE 53 IU/L (42-121); ALT ALANINE AMINOTRANSFERASE 22 IU/L (10-60); AST ASPARTATE AMINOTRANSFERASE 17 IU/L (10-42); BILIRUBIN,TOTAL 0.5 mg/dL (0.2-1.0); BUN - BLOOD UREA NITROGEN 34 mg/dL (6-20); CALCIUM 9.1 mg/dL (8.5-10.3); CARBON DIOXIDE - CO2 25 mmol/L (21-32); CHLORIDE 106 mmol/L (101-111); CREATININE 1.3 mg/dL (0.4-1.0); ETOH - ETHANOL < 5.0 mg/dL; GFR - MDRD 39 (>89); GLUCOSE 95 mg/dL (70-100); LIPASE 61 U/L (22-51); SALICYLATE < 6.0 mg/dL; SODIUM 141 mmol/L (135-145); TOTAL PROTEIN 6.8 g/dL (6.7-8.2)
[2023-01-03] MEDS ORDERED: OLANZapine ODT 5 MG TABLET TL ONE (17:08)
[2023-01-03] MEDS ORDERED: hydrALAZINE 25 MG TABLET PO STA (17:09)
[2023-01-03] MEDS ORDERED: SERTRALINE 50 MG TABLET PO STA (17:10)
[2023-01-03] MEDS ORDERED: FAMOTIDINE 20 MG TABLET PO STA (17:10)
[2023-01-03 19:13] LABS: CORONAVIRUS 229E-RESP PCR NOT DETECTED; CORONAVIRUS HKU1-RESP PCR NOT DETECTED; CORONAVIRUS NL63-RESP PCR NOT DETECTED; CORONAVIRUS OC43-RESP PCR NOT DETECTED
[2023-01-03 19:14] LABS: B. PARAPERTUSSIS- RESP PCR PAN NOT DETECTED; B. PERTUSSIS- RESP PCR PANEL NOT DETECTED; C. PNEUMONIAE- RESP PCR PANEL NOT DETECTED; HUMAN METAPNEUMOVIRUS NOT DETECTED; INFLUENZA A- RESP PCR PANEL NOT DETECTED; INFLUENZA B - RESP PCR PANEL NOT DETECTED; M. PNEUMONIAE- RESP PCR PANEL NOT DETECTED; PARAINFLUENZA VIRUS 1 NOT DETECTED; PARAINFLUENZA VIRUS 2 NOT DETECTED; PARAINFLUENZA VIRUS 3 NOT DETECTED; PARAINFLUENZA VIRUS 4 NOT DETECTED; RHINOVIRUS/ENTEROVIRUS DETECTED; RSV- RESP PCR PANEL NOT DETECTED; SARS-CoV-2 -RESP PCR PANEL NOT DETECTED
[2023-01-03 20:49] VITALS: BP 164/87
== END 2023-01-03 20:48 | disposition home or self-care (01) ==
LOC: EDUNIT# → ED 16:21
DX: F25.9 Schizoaffective disorder, unspecified (principal); F22 Delusional disorders; J06.9 Acute upper respiratory infection, unspecified; I10 Essential (primary) hypertension; E78.00 Pure hypercholesterolemia, unspecified; G20 Parkinson's disease; F02.80 Dementia in other diseases classified elsewhere, unspecified severity, without behavioral disturbance, psychotic disturbance, mood disturbance, and anxiety; Z20.822 Contact with and (suspected) exposure to COVID-19; Z79.899 Other long term (current) drug therapy
CPT/HCPCS: 36415; 80053; 80307; 83690; 84443; 85025; 87633; 99283; 99284; A9270; G0480; 80320; 80329

== ENCOUNTER 2023-01-03 20:50 | Outpatient (CLI) | payer MEDICARE, MEDICAID | END 2023-01-03 23:59 | disposition home or self-care (01) | LOC: EMS 20:50 | PROVIDERS: ATTEND Emergency Medicine | DX: R41.0 Disorientation, unspecified (principal); F03.90 Unspecified dementia, unspecified severity, without behavioral disturbance, psychotic disturbance, mood disturbance, and anxiety | CPT/HCPCS: A0425; A0428 ==

== ENCOUNTER 2023-01-09 08:00 | Outpatient (CLI) | payer MEDICARE, MEDICAID ==
[2023-01-09 21:00] LABS: BASOPHILS % (AUTO) 0.5 %; EOSINOPHILS # (AUTO) 0.2 10^3/uL (0.0-0.7); EOSINOPHILS % (AUTO) 3.6 %; HGB - HEMOGLOBIN 12.3 g/dL (12.0-16.0); LYMPHOCYTES # (AUTO) 1.3 10^3/uL (1.5-3.5); LYMPHOCYTES % (AUTO) 23.6 %; MEAN CORPUSCULAR HEMOGLOBIN 30.7 pg (27.0-31.0); MEAN CORPUSCULAR HGB CONC 30.8 g/dL (32.0-36.0); MEAN CORPUSCULAR VOLUME 99.8 fL (81.0-99.0); MEAN PLATELET VOLUME 11.3 fL (7.9-10.8); MONOCYTES # (AUTO) 0.5 10^3/uL (0.0-1.0); MONOCYTES % (AUTO) 8.4 %; NEUTROPHILS # (AUTO) 3.6 10^3/uL (1.5-6.6); NEUTROPHILS % (AUTO) 63.5 %; PLT - PLATELET COUNT 199 10^3/uL (130-450); RED BLOOD COUNT 4.01 10^6/uL (4.20-5.40); RED CELL DISTRIBUTION WIDTH 13.7 % (12.0-15.0); WHITE BLOOD COUNT 5.6 x10^3/uL (4.8-10.8)
[2023-01-09 21:19] LABS: ALBUMIN 3.5 g/dL (3.2-5.5); BILIRUBIN,TOTAL 0.2 mg/dL (0.2-1.0); CALCIUM 8.5 mg/dL (8.5-10.3); CREATININE 1.4 mg/dL (0.4-1.0); TOTAL PROTEIN 6.9 g/dL (6.7-8.2)
== END 2023-01-09 23:59 | disposition home or self-care (01) ==
LOC: LAB.R 08:00
PROVIDERS: ATTEND Registered Nurse
DX: E78.5 Hyperlipidemia, unspecified (principal); D64.9 Anemia, unspecified; Z13.228 Encounter for screening for other metabolic disorders
CPT/HCPCS: 80053; 82728; 83540; 84466; 85025

== ENCOUNTER 2023-01-16 16:26 | Outpatient (CLI) | payer MEDICARE, MEDICAID ==
--- NOTE | 2023-01-17 11:15 | XRAY Report ---
PROCEDURE: Chest 2 View X-Ray INDICATIONS: COUCH/PREVENTIVE CARE TECHNIQUE: 2 views of the chest were acquired. COMPARISON: 09/20/2021 FINDINGS: Surgical changes and devices: None. Lungs and pleura: Prominent hilar structures and interstitium, stable compared to 09/20/2021. No new dense consolidation or pleural effusion. Mediastinum: Mediastinal contours appear normal. Heart size is normal. Bones and chest wall: No suspicious bony lesions. Overlying soft tissues appear unremarkable. Par tially seen degenerative changes of the spine. IMPRESSION: Chronically abnormal prominence of the interstitium and lower lung mild opacities, consider correlati on with high-resolution chest CT if there are corresponding PFT abnormalities or chronic respiratory symptoms. No new dense consolidation or pleural effusion on today's radiograph. Prominent hilar structures are also stable from 09/20/2021. Reviewed by: Mumtaz Clarke MD on 01/17/2023 11:09 AM PDT Approved by: Mumtaz Clarke MD on 01/17/2023 11:09 AM PDT Station ID: [id number]
== END 2023-01-16 16:27 | disposition home or self-care (01) ==
LOC: DI 16:26
PROVIDERS: ATTEND Registered Nurse
DX: R91.8 Other nonspecific abnormal finding of lung field (principal)

== ENCOUNTER 2023-02-28 12:00 | Outpatient (CLI) | payer MEDICARE, MEDICAID ==
[2023-02-28 12:33] LABS: ALBUMIN 3.5 g/dL (3.2-5.5); ALBUMIN/GLOBULIN RATIO 0.9 (1.0-2.2); BILIRUBIN,TOTAL 0.6 mg/dL (0.2-1.0); CALCIUM 8.9 mg/dL (8.5-10.3); CREATININE 1.3 mg/dL (0.4-1.0); POTASSIUM 4.2 mmol/L (3.5-5.0); TOTAL PROTEIN 7.2 g/dL (6.7-8.2)
[2023-02-28 14:35] LABS: BASOPHILS % (AUTO) 0.4 %; EOSINOPHILS # (AUTO) 0.2 10^3/uL (0.0-0.7); EOSINOPHILS % (AUTO) 2.6 %; HCT - HEMATOCRIT 43.8 % (37.0-47.0); HGB - HEMOGLOBIN 13.6 g/dL (12.0-16.0); LYMPHOCYTES # (AUTO) 2.4 10^3/uL (1.5-3.5); LYMPHOCYTES % (AUTO) 29.9 %; MEAN CORPUSCULAR HEMOGLOBIN 30.8 pg (27.0-31.0); MEAN CORPUSCULAR HGB CONC 31.1 g/dL (32.0-36.0); MEAN CORPUSCULAR VOLUME 99.3 fL (81.0-99.0); MEAN PLATELET VOLUME 10.4 fL (7.9-10.8); MONOCYTES # (AUTO) 0.7 10^3/uL (0.0-1.0); MONOCYTES % (AUTO) 8.2 %; NEUTROPHILS # (AUTO) 4.7 10^3/uL (1.5-6.6); NEUTROPHILS % (AUTO) 58.4 %; PLT - PLATELET COUNT 222 10^3/uL (130-450); RED BLOOD COUNT 4.41 10^6/uL (4.20-5.40); WHITE BLOOD COUNT 8.1 x10^3/uL (4.8-10.8)
== END 2023-02-28 12:01 | disposition home or self-care (01) ==
LOC: LAB 12:00
PROVIDERS: ATTEND Registered Nurse
DX: D64.9 Anemia, unspecified (principal)
CPT/HCPCS: 36415; 80053; 82728; 83540; 84466; 85025